=== PATIENT | female | born 1955 | race Caucasian/White ===

== ENCOUNTER → 2018-02-26 15:01 | Outpatient (CLI) | payer MEDICARE, MEDICAID ==
[2014-06-15 10:05] VITALS: BMI 24.9
[~2018-02-26 15:01] MED LIST: ASPIRIN81 MG PO; GLIMEPIRIDE4 MG PO; GLUCOPHAGE500 MG PO; METFORMIN HCL500 M1 PO; METOPROLOL TART50 MG PO; MOBIC7.5 MG PO; PHENYTEK200 MG PO; PLAVIX75 MG PO; PRAVACHOL40 MG PO; PRINIVIL10 MG PO; TRILIPIX45 MG PO; XALATAN 0.0052.5 ML EACH EYE
== END | disposition home or self-care (01) ==
LOC: D.MRI 15:01
DX: M54.16 Radiculopathy, lumbar region (principal)

== ENCOUNTER 2018-08-12 11:48 | Observation (INO) | payer MEDICARE, MEDICAID ==
[~2018-08-12] VITALS: Ht 157.5 cm; Wt 59.1 kg
--- NOTE | ~2018-08-12 | HEMODYNAMI ---
PATIENT:THEO FATIMA MEDICAL RECORD: [id number] : 51 LOCATION:[facility]# [id number] ADMISSION DATE: 08/12/18 Generatedon:08/12/201816:46 Patient name: THEO FATIMA Patient #: [id number] SSN: DO B: 1955 Date of study: 08/12/2018 Page: Of Hemodynamic Procedure Report Patient Data Patient Demographics Procedure consent was obtained First Name: THEO Gender: Female Last Name: KUSHAL : 1955 [facility] Initial: K Age: 63 year(s) Patient #: [id number] Race: Unknown Additional ID: [id number] Contact details [address]: [address] [place] [address] State: [place] City: [place] Zip code: [address] Past Medical History Allergies: No known allergies Admission Admission Data Admission Date: 08/12/2018 Admission Time: 13:47 Room #: D.E06 Height (in.): 61.81 BSA: 1.59 (m2) Height (cm.): 157 BMI: 23.94 (kg/m2) Weight (lbs.): 130.07 Weight (kg.): 59 Lab Results Lab Result Date: 08/12/2018 Lab Result Time: 0:00 Biochemistry Name Units Result Min Max BUN mg/dl 23 --(----)-* 7 18 Creatinine mg/dl 1.2 --(---*)-- 0.6 1.3 CBC Name Units Result Min Max Hematocrit % 45.3 --(-*--)-- 42 54 Hemoglobin g/dl 15.7 --(--*-)-- 13.5 17.5 Procedure Procedure Types Cath Procedure Diagnostic Procedure [facility] w/Coronaries Sedation Charges Moderate Sedation up to 15 minutes PCI Procedure Coronary Stent Coronary Stent Initial x2 Procedure Description Procedure Date Procedure Date: 08/12/2018 Procedure Start Time: 16:29 Procedure End Time: 16:45 Procedure Staff Name Function Anderson Blandon MD Performing Physician Chantel Amaya RT Monitor Josesito Cross RT Scrub Melina Mortensen RN Nurse Procedure Data Cath Procedure Fluoroscopy Diagnostic fluoroscopy Total fluoroscopy Time: 4.2 time: 4.2 min min Diagnostic fluoroscopy Total fluoroscopy dose: 645 dose: 645 mGy mGy Contrast Material Contrast Material Type Amount (ml) Isovue 300 136 Entry Location Entry Primary Successful Side Size Upsize Upsize Entry Closure Maciel ccessful Closure Location (Fr) 1 (Fr) 2 (Fr) Remarks Device Remarks Radial Right 6 Fr Mechanical artery Short Compression Estimated blood loss: 10 ml Diagnostic catheters Device Type Used For End Catheter Placement DIAGNOSTIC [place] 110cm 5 Procedure Fr catheter ([id number]) Procedure Complications No complications Procedure Medications Medication Administration Route Dosage 0.9% NaCl I.V. 100 ml/hr Oxygen etCO2 Nasal cannula 2 l/min Lidocaine 2% added to field 20 Heparin Flush Bag added to field 2 bags (1000units/500ml NS) Radial Cocktail added to field 1 syringe (Verapomil 2mg/Nitro 400mcg/Heparin 1500units) Versed I.V. 2 mg Fentanyl I.V. 50 mcg Versed I.V. 2 mg Fentanyl I.V. 50 mcg Heparin Bolus I.V. 4000 units Integrilin (Bolus I.V. 5 ml 2mg/ml) Lopressor I.V. 5 mg Hemodynamics Rest BSA: 1.59 (m2) O2 Consumption: Estimated: 163.4 (ml/min) O2 Consumption indexed: Estimated:102.77 (ml/min/m) Heart Rate: 95 (bpm) Snapshots Pre Cath Intra NCS Post Cath Vital Signs Time Heart Resp SPO2 etCO2 NIBP (mmHg) Rhythm Pain Sedation Rate (ipm) (%) (mmHg) Status Level (bpm) 16:20:59 86 18 99 31.7 155/73(118) NSR 0 (11) 10(A) , No pain 16:25:22 90 20 98 30 155/62(91) NSR 0 (11) 10(A) , No pain 16:29:40 92 16 97 26.4 141/57(97) NSR 0 (11) 10(A) , No pain 16:33:56 100 17 97 30 116/54(76) NSR 0 (11) 9(A) , No pain 16:38:10 102 16 98 27 126/63(92) NSR 0 (11) 9(A) , No pain 16:42:26 81 17 99 36.9 142/63(87) NSR 0 (11) 10(A) , No pain Medications Time Medication Route Dose Verified Delivered Reason Not es Effectiveness by by 16:20:50 0.9% NaCl I.V. 100 Anderson Melina used for ml/hr Jamia Mortensen aluminum boats assembler 16:21:00 Oxygen etCO2 2 l/min Anderson Melina used for Nasal Jamia Mortensen procedure cannula RN 16:21:05 Lidocaine 2% added 20ml Anderson Anderson for local to vial Jamia Blandno MD anesthetic field 16:21:12 Heparin Flush added 2 bags Anderson Anderson used for Bag to Jamia Blandon MD procedure (1000units/500ml field NS) 16:21:17 Radial Cocktail added 1 Anderson Anderson used for (Verapomil to syringe Jamia Blandon MD procedure 2mg/Nitro field 400mcg/Heparin 1500units) 16:26:11 Versed I.V. 2 mg Anderson Melina for sedation Jamia Mortensen RN 16:26:17 Fentanyl I.V. 50 mcg Anderson Melina for sedation Jamia Mortensen RN 16:31:04 Versed I.V. 2 mg Anderson Melina for sedation Jamia Mortensen RN 16:31:08 Fentanyl I.V. 50 mcg Anderson Melina for sedation Jamia Mortensen RN 16:34:09 Heparin Bolus I.V. 4000 Anderson Melina for tee ifed units Jamia Mortensen anticoagulation with RN Dr. Blandon 16:38:34 Integrilin I.V. 5 ml Anderson Melina for was wilberto (Bolus 2mg/ml) Jamia Mortensen antiplatelet 5mL RN therapy 16:40:27 Lopressor I.V. 5 mg Anderson Melina Per physician Jamia Mortensen drum puller Log Time Note 16:00:23 Signed procedure consent form obtained from patient. 16:00:25 Diagnostic Cath status Elective 16:00:26 Time tracking: Regular hours (M-F 7:00 - 5:00) 16:00:30 Plan of Care:Hemodynamics will remain stable., Cardiac rhythm will remain stable., Comfort level will be maintained., Respiratory function will remain adequate., Patient/ family verbilizes understanding of procedure., Procedure tolerated without complication., Recovers from procedure without complications.. 16:00:58 H&P Date Dictated: 08/12/2018 ER History on chart.. 16:01:18 Patient allergic to No known allergies 16::47 Lab Result : BUN 23 mg/dl :: Lab Result : Hemoglobin 15.7 g/dl 16::47 Lab Result : Creatinine 1.2 mg/dl :: Lab Result : Hematocrit 45.3 % 16::57 Patient Height : 61.81 inches 16:02: Patient Weight : 130.07 lbs 16::27 Josesito Cross RT(R) sent for patient. Start room use. 16:12:15 Patient received from ED to CCL 1 Alert and oriented. Tansferred to table in Supine position. 16:12:17 Warm blankets applied, and ruth ann hugger turned on for patient comfort. 16:12:18 Correct patient and procedure confirmed by team. 16:12:20 ECG and BP/O2 sat monitors applied to patient. 16:18:42 Vital chart was started 16:20:50 0.9% NaCl 100 ml/hr I.V. was administered by Melina Mortensen RN; used for procedure; 16:21:00 Oxygen 2 l/min etCO2 Nasal cannula was administered by Melina Mortensen RN; used for procedure; 16:21:05 Lidocaine 2% 20ml vial added to field was administered by Anderson Blandon MD; for local anesthetic; 16:21:12 Heparin Flush Bag (1000units/500ml NS) 2 bags added to field was administered by Anderson Blandon MD; used for procedure; 16:21:17 Radial Cocktail (Verapomil 2mg/Nitro 400mcg/Heparin 1500units) 1 syringe added to field was administered by Anderson Blandon MD; used for procedure; 16:23:18 Rhythm: sinus rhythm 16:23:19 Full Disclosure recording started 16:23:20 Pre-procedure instructions explained to patient. 16:23:21 Pre-op teaching completed and patient verbalized understanding. 16:23:28 Family unavailable. 16:23:35 Is patient on blood thinner?Yes 16:23:42 PRE LOADED PLAVIX IN THE ER 16:23:44 Patient diabetic? No. 16:23:50 Patient not . Patient is over age 55. 16:23:52 Previous problem with sedation/anesthesia? No ? 16:23:53 Snore? Yes 16:23:54 Sleep apnea? No 16:23:55 Deviated septum? No 16:23:56 Opens mouth fully? Yes 16:23:57 Sticks out tongue? Yes 16:23:58 Airway obstruction? No ? 16:24:02 Dentures? Yes IN 16:24:05 Modified Yong's test Ulnar < 7 seconds 16:24:07 Patient pain scale 0/10 ?. 16:24:10 IV patent on arrival in left hand with 0.9% NaCl at [facility]. 16:24:11 Lab results completed and on chart. 16:24:15 Right Radial & Right Groin area was prepped with chlora-prep and draped in sterile fashion 16:24:16 Alarms reviewed by R. N. 16:24:17 Sharps counted by scrub and verified by R.N. 16:24:19 Use device set Radial Dx or PCI 16:24:20 ACIST Syringe (49626) opened to sterile field. 16:24:20 Medline Cath Pack ([id number]) opened to sterile field. 16:24:21 Bag Decanter (2002S) opened to sterile field. 16:24:26 ACIST Hand Control (29995) opened to sterile field. 16:24:26 ACIST Manifold (55180) opened to sterile field. 16:24:32 Tegaderm 4 x 4 (1626W) opened to sterile field. 16:24:33 DIAGNOSTIC WIRE .035 260cm J wire (880025) opened to sterile field. 16:24:34 MBrace Wrist Support ([id number]) opened to sterile field. 16:24:35 SHEATH 6FR Slender (29-9305) opened to sterile field. 16:24:42 --------ALL STOP TIME OUT------ 16:24:44 Final Timeout: patient, procedure, and site verified with staff and physician. All members of the team are in agreement. 16:24:46 Right Radial & Right Groin site verified by team. 16:24:48 Maximum allowable Isovue 300 dose 300ml. Physician notified. (300ml for normal creatinines. For patients with creatinine of 1.7 or higher multiply weight(kg) x 5 divided by creatinine.) 16:24:53 Fire Safety Assessment: A--An alcohol-based skin anteseptic being used preoperatively., C--Open oxygen or nitrous oxide is being used., D--An ESU, laser, or fiber-optic light is being used. 16:24:56 Physical assessment completed. ASA score P 2 - A patient with mild systemic disease as per Anderson Blandon MD. 16:24:58 Sedation plan: IV Moderate Sedation Medication:Versed, Fentanyl 16:26:07 Baseline sample Acquired. 16:26:11 Versed 2 mg I.V. was administered by Melina Mortensen RN; for sedation; 16:26:17 Fentanyl 50 mcg I.V. was administered by Melina Mortensen RN; for sedation; 16:28:32 Zero performed for pressure channel P1 16:28:42 Procedure started. 16:29:15 Local anesthetic to right radial artery with Lidocaine 2% by Anderson Blandon MD.INITIAL ACCESS ONLY 16:30:13 A 6 Fr Short sheath was inserted into the Right Radial artery 16:30:26 A DIAGNOSTIC [place] 110cm 5 Fr catheter ([id number]) was advanced over the wire and used for Procedure. 16::53 LV gram done using ABDALLA 16:30:55 Injector settings: Ml/sec: 7, Volume: 15, 16:31:04 Versed 2 mg I.V. was administered by Melina Mortensen RN; for sedation; 16:31:08 Fentanyl 50 mcg I.V. was administered by Melina Mortensen RN; for sedation; 16:31:11 EF : 60 % 16:31:56 LCA angiography performed. 16:32:48 RCA angiography performed. 16:32:52 Catheter exchanged over wire. 16:34:09 Heparin Bolus 4000 units I.V. was administered by Melina Mortensen RN; for anticoagulation; verifed with Dr. Blandon 16:34:26 GUIDE 6FR AR 1.0 SH catheter ([id number]) opened to sterile field. 16:34:27 CHOICE PT Extra Support 182cm wire ([id number]) opened to sterile field. 16:34:33 INFLATOR Merit BasixCompak (VG4168) opened to sterile field. 16:34:43 6 Fr AR1 SH guide catheter was inserted over the wire 16:35:25 CHOICE ES 182 wire advanced. 16:35:26 Wire advanced across lesion. 16:36:16 Place stent Inflation Number: 1 A NATALYA RX 3.0 x 18 stent ([id number]) was prepped and advanced across the Mid RCA. The stent was deployed at 13 ANTHONY for 0:10 (min:sec). 16:36:27 Stent catheter was removed intact over wire. 16:36:27 Wire removed. 16:36:28 Guide catheter removed. 16:37:43 GUIDE 6FR XB 3.5 SH catheter ([id number]) opened to sterile field. 16:37:54 6 Fr XB 3.5SH guide catheter was inserted over the wire 16:38:34 Integrilin (Bolus 2mg/ml) 5 ml I.V. was administered by Melina Mortensen RN; for antiplatelet therapy; wasted 5mL 16:38:59 CHOICE ES 182 wire advanced. 16:39:00 Wire advanced across lesion. 16:40:27 Lopressor 5 mg I.V. was administered by Melina Mortensen RN; Per physician; 16:40:34 Place stent Inflation Number: 1 A NATALYA RX 2.75 x 18 stent ([id number]) was prepped and advanced across the Prox CX. The stent was deployed at 17 ANTHONY for 0:00 (min:sec). 16:41:18 Stent catheter was removed intact over wire. 16:41:19 Wire removed. 16:41:19 Guide catheter removed. 16:41:42 TR BAND Standard ([id number]) opened to sterile field. 16:42:07 Procedure ended.(Physican Out) 16:42:56 Sheath removed intact; hemostasis achieved with Mechanical Compression to the Right Radial artery. 16:43:01 Fluoroscopy time 04.20 minutes. 16:43:05 Fluoroscopy dose: 645 mGy 16:43:05 Flurop Dose total: 645 16:43:13 Contrast amount:Isovue 300 136ml. 16:43:15 Sharps counted by scrub and verified by R.N. 16:43:18 TR band inflated with 12cc of air. 16:44:33 Post-procedure physical assessment completed. ASA score P 2 - A patient with mild systemic disease as per Anderson Blandon MD. 16:44:35 Post procedure rhythm: sinus rhythm 16:44:39 Estimated blood loss: 10 ml 16:44:41 Post procedure instruction explained to patient.Patient verbalizes understanding. 16:44:41 Patient needs reinforcement of post procedure teaching. 16:44:57 Procedure type changed to Cath procedure, Diagnostic procedure, LHC, C w/Coronaries, Sedation Charges, Moderate Sedation up to 15 minutes, PCI procedure, Coronary Stent, Coronary Stent Initial x2 16:45:21 Procedure and supply charges have been captured, reviewed, submitted and are correct. 16:45:23 Procedure Complication : No complications 16:45:25 Vital chart was stopped 16:45:25 See physician's report for complete and final results. 16:45:27 Report given to [facility]. 16:45:29 Patient transfered to [facility] with Bed. 16:45:31 Procedure ended. 16:45:31 Full Disclosure recording stopped 16:45:37 End room use (Document Last) Intervention Summary Intervention Notes Time ActionType Lesion and Equipment Used Action# Pressure Duration Attributes 16:36:16 Place stent Mid RCA NATALYA RX 3.0 x 1 13 00:10 18 stent ([id number]) 16:40:34 Place stent Prox CX NATALYA RX 2.75 x 1 17 00:00 18 stent ([id number]) Device Usage Item Name Manufacture Quantity Catalog Number Hospital Part Current M inimal Lot# / Charge Number Stock Stock Serial# Code ACIST Syringe Acist 1 72670 081541 049749 182902 2 0 (54683) Medical Systems Inc Medline Cath Medline 1 [id number] 619765 15146 423387 5 Pack ([id number]) Bag Decanter Microtek 1 2001S 416068 74814 636576 5 () Medical Inc. ACIST Hand Acist 1 48913 451816 240975 338878 5 Control Medical (51652) Systems Inc ACIST Manifold Acist 1 80762 151756 419743 987630 5 (58527) Medical Systems Inc Tegaderm 4 x 4 3M 1 1626W 285980 430141 571852 5 (1626W) DIAGNOSTIC St Navjot 1 223032 416488 675504 200887 3 0 WIRE .035 260cm J wire (035810) MBrace Wrist Advanced 1 140-0250-00 519609 87962 909566 5 Support Vascular ([id number]) Dynamics SHEATH 6FR Terumo 1 [id number] 213100 890608 812568 5 Slender (80-1060) DIAGNOSTIC Terumo 1 40-1963 610279 325964 149079 5 [place] 110cm 5 Fr catheter (703490) GUIDE 6FR AR Medtronic 1 [id number] 945893 30771 751162 1 1.0 SH catheter ([id number]) CHOICE PT Edon 1 [id number] 624709 525271 729054 5 Extra Support Scientific 182cm wire (1202989M6) INFLATOR Merit Merit 1 YL2881 630110 154711 305332 1 5 Makers AlleywvSummon (CJ9816) NATALYA RX 3.0 x Medtronic 1 [id number] 552233 1376974 715211 5 [id number] 18 stent ([id number]) GUIDE 6FR XB Cardinal 1 [id number] 892530 528795 430942 2 3.5 SH Health catheter (86837311) NATALYA RX 2.75 x Medtronic 1 [id number] 141345 3601831 195540 5 [id number] 18 stent ([id number]) TR BAND Terumo 1 [id number] 896782 128986 390636 4 0 Standard ([id number]) Signature Audit [place] Stage Time Signature Unsigned Intra-Procedure 08/12/2018 Chantel Amaya 4:46:21 PM RT(R) Signatures Monitor : Chantel Amaya Signature : RT Date : Time : [place] [address] TAMMY KHAN, UZMA [address]
[2018-08-12] MEDS ORDERED: GABAPENTIN100 MG PO (11:55)
[2018-08-12] MEDS ORDERED: TRILIPIX45 MG PO (11:55)
[2018-08-12] MEDS ORDERED: DOXYCYCLINE HY100 M2 PO (11:56)
[2018-08-12 12:18] LABS: BASOPHILS 0.4 % (0-2); HEMATOCRIT 45.3 % (36.0-48.0); HEMOGLOBIN 15.7 g/dL (12-16); IMMATURE GRANULOCYTES 1.4 % (0-5); LYMPHOCYTES 12.3 % (15-50); MCHC 34.7 g/dL (31.0-37.0); MCV 92.3 fL (80.0-100.0); MEAN PLATELET VOLUME 10.2 fL (7.4-10.4); MONOCYTES 10.1 % (2-11); NEUTROPHILS 74.8 % (40-80); RBC 4.91 10x6/uL (4.00-5.40); RDW 12.6 % (11.5-14.5); WBC 15.5 10x3/uL (4.8-10.8)
[2018-08-12 12:21] LABS: PLATELET COUNT 463 10x3/uL (130-400)
[2018-08-12 12:34] LABS: ALBUMIN 3.6 g/dL (3.4-5.0); ALKALINE PHOSPHATASE 125 U/L (46-116); ALT (SGPT) 42 U/L (10-68); CALC OSMOLALITY 276 mosm/kg (275-300); CALCIUM 9.4 mg/dL (8.5-10.1); CARBON DIOXIDE 22.5 mmol/L (21.0-32.0); CHLORIDE - SERUM 99 mmol/L (98-107); CREATININE - SERUM 1.2 mg/dL (0.6-1.3); GLUCOSE 151 mg/dL (74-106); POTASSIUM - SERUM 4.5 mmol/L (3.5-5.1); SODIUM 135 mmol/L (136-145); UREA NITROGEN 23 mg/dL (7-18); eGFR NON AFRICAN AMERICAN 48 mL/min (90-120)
[2018-08-12 12:44] LABS: APTT 28.2 SECONDS (22.8-39.4); INR 1.05 (0.85-1.17); PROTIME 13.2 SECONDS (11.6-15.0)
[2018-08-12 12:46] LABS: CKMB 17.1 U/L (0.0-3.6); CREATINE KINASE 131 UL (21-215); MAGNESIUM - SERUM 1.8 mg/dL (1.8-2.4); TROPONIN-I < 0.017 ng/mL (0.000-0.060)
--- NOTE | 2018-08-12 16:43 | HP ---
PATIENT: THEO FATIMA MEDICAL RECORD: [id number] ACCOUNT: [id number] [facility] 51 ADMISSION DATE: 08/12/18 PCP: CATARINA MCKINNEY MD HISTORY AND PHYSICAL EXAMINATION DIAGNOSES: 1. Unstable angina. 2. Coronary artery disease. 3. Previous multivessel PTCA and stent. 4. Hypertension. 5. Hyperlipidemia. 6. Noninsulin-dependent diabetes. HISTORY: Mrs. Fatima presents with continuing anginal symptomatology. She was set for cardiac catheterization on Friday. The chest pain worsened. She now presented today. She has no acute changes on her EKG. She continues to have episodes of chest pain in an unstable fashion. PHYSICAL EXAMINATION: GENERAL APPEARANCE: Well-nourished, well-developed, appears stated age. Level of distress, comfortable. PSYCHIATRIC: Mental status, alert, normal affect. Orientation, oriented to time, place and person. EYES: Lids and conjunctiva, noninjected. No discharge, no pallor. ENT: Lips, teeth, gums, normal dentition. Oropharynx, no cyanosis, no pallor. NECK: Carotid arteries, bilateral normal upstroke, no bruits, no thrills. JUGULAR VEINS: No jugular venous pressure or distention. CERVICAL LYMPH NODES: Nontender, nonenlarged. THYROID: Not enlarged. Nontender. No nodules. LUNGS: Respiratory effort, unlabored. CHEST: Normal curvature. No thoracic deformity. No chest wall tenderness. Percussion, resonant. Auscultation, clear. No wheezes, no rales, no rhonchi. CARDIOVASCULAR: Precordial exam, nondisplaced. No heaves or pericardial thrills. Rate and rhythm, regular. Heart sounds, normal S1, normal S2. No S3, no gallop, no rub. Systolic murmur, not heard. Diastolic murmur, not heard. EXTREMITIES: No cyanosis, no edema. Peripheral pulses, full and equal in all extremities, except as noted. No bruits appreciated. ABDOMEN: Soft, nondistended. Normal aorta. No bruit. Nontender. No masses. Liver, nontender, no hepatomegaly. Spleen, nontender, no splenomegaly. MUSCULOSKELETAL: No joint tenderness. No joint swelling. No erythema. NEUROLOGICAL: Normal gait, normal strength, normal tone. SKIN: Warm and dry. OVERALL IMPRESSION: Chest pain with unstable angina with past history of coronary artery disease, multivessel PTCA and stent. We will proceed with coronary angiography. Further care depends upon findings of the angiography. TRANSINT:[id number] Voice Confirmation ID: [id number] DOCUMENT ID: [id number] HISTORY AND PHYSICAL [id number] THEO FATIMA JEFFREY MD at 1643 CC: [id number] DICTATION DATE: 08/12/18 1533 SKI PRODUCTION SUPERVISOR: 08/12/18 1543 ADM IN [facility] [address] [id number]
--- NOTE | 2018-08-12 17:12 | NUR ---
TRANSFER FROM BEVELLER OPERATOR BY STRETCHER. VS WNL. RIGHT WRIST STABLE WITH TR-BAND INTACT. CALL LIGHT IN REACH. WILL CONT. PLAN OF CARE.
[2018-08-12 17:20] VITALS: BP 121/71; Ht 157.5 cm; Wt 59.1 kg
--- NOTE | 2018-08-12 19:24 | NUR ---
RESUMING PATIENT CARE. PATIENT ALERT AND ORIENTED. RESPIRATIONS ARE EVEN AND UNLABORED. NO S/S OF DISTRESS. NO C/O PAIN. CALL LIGHT WITHIN REACH. WILL CPOC.
--- NOTE | 2018-08-12 19:54 | MORECARE ---
CASE MANAGEMENT DISCHARGE SUMMARY PATIENT: THEO FATIMA UNIT: [id number] ADM DATE: 08/12/18 AGE: 63 : 51 SEX: F ROOM/BED: D.[facility]8 AUTHOR: MASTER RUEDA PHYSICIAN: REFERRING PHYSICIAN: OTTONIEL DURAN MD DATE OF SERVICE: 08/12/18 Discharge Plan Patient Name: THEO FATIMA [facility] [facility] 1955 Planned Disposition: Anticipated Discharge Date: 08/13/18 Discharge Date: Expected LOS: 1 Initial Reviewer: [email or web address] Initial Review Date: 08/12/2018 Generated: 08/12/18 8:54 pm DCPIA - Discharge Planning Initial Assessment Updated by [email or web address]: Mariama Benz on 08/12/18 7:51 pm * Is the patient Alert and Oriented? Yes * How many steps to enter\exit or inside your home? 07/30 w/coello * PCP Dr. Villalpando * Pharm[facility] * Preadmission Environment Home Alone * ADLs Independent * Equipment Cane Rolling Walker * Other Equipment NA * List name and contact numbers for known caregivers / representatives who currently or will assist patient after discharge: Jolly Zaldivar (lifelong friend) [phone] * Verbal permission to speak to the caregivers and representatives has been obtained from the patient. N/A * Please name any agencies selected above. NA * Additional services required to return to the preadmission environment? No * Can the patient safely return to the preadmission environment? Yes * Has this patient been hospitalized within the prior 30 days at any hospital? No Patient Name: THEO FATIMA Page [id number] at 1956 All edits/amendments must be made on the electronic document DICTATION DATE: 08/12/181952 JEWEL BEARING BROACHER: JERRY 08/12/181952 RPT#: [id number] DC DATE: STATUS: ADM IN [facility] [address] [place] [address] END OF REPORT
[2018-08-12 22:36] VITALS: BP 146/61
[2018-08-13 06:06] VITALS: BP 131/67
--- NOTE | 2018-08-13 07:30 | NUR ---
RECEIVED PT IN BED EYES CLOSED RESP UNLABORED NAD NOTED
--- NOTE | 2018-08-13 08:21 | MORECARE ---
CASE MANAGEMENT DISCHARGE SUMMARY PATIENT: THEO FATIMA UNIT: [id number] ADM DATE: 08/12/18 AGE: 63 : 53 SEX: F ROOM/BED: D.[facility]8 AUTHOR: MASTER RUEDA PHYSICIAN: REFERRING PHYSICIAN: OTTONIEL DURAN MD DATE OF SERVICE: 08/13/18 Discharge Plan Patient Name: THEO FATIMA [facility] [facility] 1955 Planned Disposition: Anticipated Discharge Date: 08/13/18 Discharge Date: Expected LOS: 1 Initial Reviewer: [email or web address] Initial Review Date: 08/12/2018 Generated: 08/13/18 9:21 am DCPIA - Discharge Planning Initial Assessment Updated by [email or web address]: Mariama Benz on 08/12/18 7:51 pm * Is the patient Alert and Oriented? Yes * How many steps to enter\exit or inside your home? 07/30 w/coello * PCP Dr. Villalpando * Pharmacy [facility]onis Rodriguez * Preadmission Environment Home Alone * ADLs Independent * Equipment Cane Rolling Walker * Other Equipment NA * List name and contact numbers for known caregivers / representatives who currently or will assist patient after discharge: Jolly Zaldivar (lifelong friend) [phone] * Verbal permission to speak to the caregivers and representatives has been obtained from the patient. N/A * Please name any agencies selected above. NA * Additional services required to return to the preadmission environment? No * Can the patient safely return to the preadmission environment? Yes * Has this patient been hospitalized within the prior 30 days at any hospital? No Last DP export: 08/12/18 6:54 p Patient Name: THEO FATIMA Page 62557 at 0821 All edits/amendments must be made on the electronic document DICTATION DATE: 08/13/18820 ROOF PROMENADE TILE SETTER: JERRY 08/13/18820 RPT#: [id number] DC DATE: STATUS: ADM IN [facility] [address] [place] [address] END OF REPORT
[2018-08-13] MEDS ORDERED: PLAVIX75 MG PO (08:38)
[2018-08-13 09:06] VITALS: BP 125/70
--- NOTE | 2018-08-13 10:12 | NUR ---
REVIEWED DISCHARGE INSTRUCTIONS WITH PT STATES UNDERSTANDING COPY GIVEN
--- NOTE | 2018-08-13 11:19 | NUR ---
PT DCD HOME LEFT UNIT VIA W/C IN STABLE CONDITION WITH ALL PERSONAL BELONGINGS
--- NOTE | 2018-08-14 08:29 | MORECARE ---
CASE MANAGEMENT DISCHARGE SUMMARY PATIENT: THEO FATIMA UNIT: [id number] ADM DATE: 08/12/18 AGE: 63 : 53 SEX: F ROOM/BED: D.2697 AUTHOR: MASTER RUEDA PHYSICIAN: REFERRING PHYSICIAN: OTTONIEL DURAN MD DATE OF SERVICE: 08/14/18 Discharge Plan Patient Name: THEO FATIMA Facility: [facility]:[place] : 1955 Planned Disposition: Anticipated Discharge Date: 08/13/18 Discharge Date: 08/13/2018 Expected LOS: 1 Initial Reviewer: [email or web address] Initial Review Date: 08/12/2018 Generated: 08/14/18 9:29 am DCPIA - Discharge Planning Initial Assessment Updated by [email or web address]: Mariama Benz on 08/12/18 7:51 pm * Is the patient Alert and Oriented? Yes * How many steps to enter\exit or inside your home? 07/30 w/coello * PCP Dr. Villalpando * Pharmacy [facility] * Preadmission Environment Home Alone * ADLs Independent * Equipment Cane Rolling Walker * Other Equipment NA * List name and contact numbers for known caregivers / representatives who currently or will assist patient after discharge: Jolly Zaldivar (lifelong friend) [phone] * Verbal permission to speak to the caregivers and representatives has been obtained from the patient. N/A * Please name any agencies selected above. NA * Additional services required to return to the preadmission environment? No * Can the patient safely return to the preadmission environment? Yes * Has this patient been hospitalized within the prior 30 days at any hospital? No Last DP export: 08/13/18 7:21 a Patient Name: THEO FATIMA Page 76190 at 0829 All edits/amendments must be made on the electronic document DICTATION DATE: 08/14/18827 WELDING SYSTEMS AND EQUIPMENT REPAIRER: JERRY 08/14/18827 RPT#: [id number] DC DATE:08/13/18 STATUS: DIS IN [facility] [address] [place] [address] END OF REPORT
--- NOTE | 2018-08-14 15:03 | OP ---
PATIENT NAME: THEO FATIMA MEDICAL RECORD: [id number] :51 LOCATION:D.M2 D.2118 ADMISSION DATE:08/12/18 SURGEON: OTTONIEL DURAN MD DATE OF OPERATION: 08/12/2018 DATE OF SERVICE: 08/12/2018 PROCEDURES: 1. PTCA stent RCA. 2. PTCA stent left circumflex. 3. Left heart catheterization. 4. Selective coronary angiography. 5. Left ventriculogram. INDICATION: Angina and coronary artery disease. PROCEDURE IN DETAIL: After informed consent was obtained and after a detailed description of the risks, benefits as well as alternative therapies, the patient elected to proceed with angiogram and angioplasty. The right radial area was prepped and draped in normal sterile fashion. Right radial artery was cannulated via modified Seldinger technique with placement of 6-Khmer sheath. All catheters exchanged through this sheath. FINDINGS: Left ventriculogram was performed in standard 30-degree ABDALLA view, reveals preserved cardiac wall motion, ejection fraction 55%. SELECTIVE CORONARY ANGIOGRAPHY: 1. Left main showed no significant angiographic disease. 2. Left anterior descending has previously placed stent. There is no significant restenosis. No disease elsewise at the LAD or its branches. 3. Left circumflex has 90% stenosis proximally. 4. Right coronary has 75% stenosis in the mid vessel. PTCA STENT OF THE RCA: The stent used was a 3.0 x 18-mm [place]. Result was 0% residual stenosis. PTCA STENT OF THE LEFT CIRCUMFLEX: The stent used was a 2.75 x 18-mm [place]. Result was 0% residual stenosis. OVERALL IMPRESSION: Successful percutaneous transluminal coronary angioplasty stent of the right coronary artery and left circumflex, both going from 75% to 80% initial stenosis to 0% residual. TRANSINT:[id number] Voice Confirmation ID: [id number] DOCUMENT ID: [id number] OTTONIEL DURAN MD at 1503 CC: [id number] DICTATION DATE: 08/12/18 164 BANK WORKER: 08/12/18 2316 DIS IN 08/13/18 [place] [address]
== END 2018-08-13 11:19 | disposition home or self-care (01) ==
LOC: D.ER 11:48 → OBSVTIME 13:47 → D.EDHOLD 13:47 → D.M2 17:08
PROVIDERS: Emergency Medicine; ADMIT Internal Medicine Interventional Cardiology; ATTEND Internal Medicine Interventional Cardiology
DX: I25.110 Atherosclerotic heart disease of native coronary artery with unstable angina pectoris (principal); I10 Essential (primary) hypertension; E78.5 Hyperlipidemia, unspecified; E11.9 Type 2 diabetes mellitus without complications
CPT/HCPCS: 93458; C9600 ×2

== ENCOUNTER 2019-01-10 12:31 | Emergency (ER) | payer MEDICARE, MEDICAID ==
[~2019-01-10] VITALS: Ht 157.5 cm; Wt 59.0 kg
[~2019-01-10 12:31] MED LIST changes: +DOXYCYCLINE HY100 M2 PO; +GABAPENTIN100 MG PO
[2019-01-10 12:37] VITALS: Ht 157.5 cm; Wt 59.0 kg
[2019-01-10] MEDS ORDERED: LISINOPRIL10 MG PO (12:39)
[2019-01-10] MEDS ORDERED: CLARITIN 10 MG10 MG (12:40)
[2019-01-10] MEDS ORDERED: ZANTAC300 MG PO (12:40)
[2019-01-10] MEDS ORDERED: ERYTHROMYCIN OPT1 GM EACH EYE (15:51)
[2019-01-10 16:20] VITALS: BP 145/80
== END 2019-01-10 16:21 | disposition home or self-care (01) ==
LOC: D.ER 12:31
DX: S05.02XA Injury of conjunctiva and corneal abrasion without foreign body, left eye, initial encounter (principal); S05.01XA Injury of conjunctiva and corneal abrasion without foreign body, right eye, initial encounter; X58.XXXA Exposure to other specified factors, initial encounter; Y93.89 Activity, other specified; Y92.89 Other specified places as the place of occurrence of the external cause

== ENCOUNTER 2019-06-08 19:00 | Outpatient (CLI) | payer MEDICARE, MEDICAID ==
[~2019-06-08 19:00] MED LIST changes: +CLARITIN 10 MG10 MG; +ERYTHROMYCIN OPT1 GM EACH EYE; +LISINOPRIL10 MG PO; +ZANTAC300 MG PO
== END 2019-06-08 23:59 | disposition home or self-care (01) ==
LOC: D.MAMMO 19:00 → D.US 06-14 10:30
PROVIDERS: ATTEND Family Medicine
DX: N63.15 Unspecified lump in the right breast, overlapping quadrants (principal)

== ENCOUNTER → 2019-06-16 08:26 | Outpatient (CLI) | payer MEDICARE, MEDICAID | END | disposition home or self-care (01) | LOC: D.US 08:26 | PROVIDERS: ATTEND Family Medicine | DX: N63.15 Unspecified lump in the right breast, overlapping quadrants (principal) ==

== ENCOUNTER 2019-07-15 05:55 | Day surgery (SDC) | payer MEDICARE, MEDICAID ==
[2019-07-13 13:48] LABS: EOSINOPHILS 4.6 % (0-7); HEMATOCRIT 40.9 % (36.0-48.0); HEMOGLOBIN 13.2 g/dL (12-16); IMMATURE GRANULOCYTES 0.4 % (0-5); LYMPHOCYTES 24.3 % (15-50); MCH 29.3 pg (26.0-34.0); MCHC 32.3 g/dL (31.0-37.0); MCV 90.9 fL (80.0-100.0); MEAN PLATELET VOLUME 10.5 fL (7.4-10.4); MONOCYTES 9.7 % (2-11); PLATELET COUNT 490 10x3/uL (130-400); RDW 13.8 % (11.5-14.5); WBC 9.8 10x3/uL (4.8-10.8)
[2019-07-13 14:01] LABS: ANION GAP 11.7 mmol/L (8-16); CALCIUM 9.4 mg/dL (8.5-10.1); CARBON DIOXIDE 29.7 mmol/L (21.0-32.0); CREATININE - SERUM 1.1 mg/dL (0.6-1.3); POTASSIUM - SERUM 4.4 mmol/L (3.5-5.1)
[~2019-07-15] VITALS: Ht 157.5 cm; Wt 58.5 kg
--- NOTE | ~2019-07-15 | OP ---
PATIENT NAME: THEO FATIMA MEDICAL RECORD: [id number] :51 LOCATION:D.OPS ADMISSION DATE: SURGEON: CHRISTIANO MEDRANO MD DATE OF OPERATION: 07/15/2019 PREOPERATIVE DIAGNOSES: 1. Right invasive ductal carcinoma. 2. Coronary artery disease. POSTOPERATIVE DIAGNOSES: 1. Right invasive ductal carcinoma. 2. Coronary artery disease. PROCEDURE IN DETAIL: Right lumpectomy with right axillary sentinel lymph node biopsy. SURGEON: Christiano Medrano MD REPORT OF PROCEDURE: Preoperatively, the patient had lymphoscintigraphy, which showed uptake in the patient's right axilla. The patient's right breast and axilla were prepped and draped in sterile fashion. The mass was palpable in the lateral aspect of the right breast. A transverse incision was made overlying this mass and electrocautery was used to dissect through the subcutaneous tissues. We performed a lumpectomy with a large core of breast tissue around this palpable mass. This was completely excised and marked appropriately before it was sent off for permanent specimen. We inspected the wound bed and any bleeding that was found was treated with electrocautery. The inspection of the patient's axilla showed there was uptake of the lymph node. There was actually very close to the base of our wound bed. We went through this the breast incision was able to access the patient's axilla and found an enlarged what appeared to be fatty palpable lymph node. This lymph node had uptake of 350. We were able to remove this lymph node and a small lymph node that was adherent to it. Once these were excised, we inspected the wound bed and did not see any evidence of any further radioactive uptake. We then irrigated out the wound with sterile water. Again, we checked for any bleeding and any that was found was treated with electrocautery. The subcutaneous tissues were reapproximated with interrupted 3-0 Vicryls and the skin was closed with running subcutaneous 5-0 Monocryl. A total of 10 mL of 0.25% Marcaine with epinephrine was infused into the surrounding tissues and the wound was dressed appropriately. COMPLICATIONS: None. CONDITION: Stable. ANESTHESIA: General endotracheal and local. BLOOD LOSS: Minimal. TRANSINT:[id number] Voice Confirmation ID: [id number] DOCUMENT ID: [id number] OPERATIVE REPORT [id number] FATIMA,THEO Trisha CHRISTIANO MEDRANO MD CC: CATARINA MCKINNEY [id number] DICTATION DATE: 07/15/19 1135 GENERAL DOC: 07/15/19 1742 REG [facility] [address] [id number]
[~2019-07-15 05:55] MED LIST changes: +CIMETIDINE200 MG PO
[2019-07-15 06:57] VITALS: BP 131/63; Ht 157.5 cm; Wt 58.5 kg
--- NOTE | 2019-07-15 08:50 | NUR ---
Patient was scheduled for a Right Breast Lymphoscintigraphy. Dr. Dee entered the room. Time-out was called at 0810. Site was prepped and 539uCi Tc-99m Tilmanocept was injected into the right breast subcutaneous at 0815 by physician. Imaging followed.
[2019-07-15] MEDS ORDERED: HYDROCODON-ACE1 EA10 PO (11:31)
== END 2019-07-15 14:55 | disposition home or self-care (01) ==
LOC: D.OPS 05:55
PROVIDERS: ATTEND Surgery
DX: C50.611 Malignant neoplasm of axillary tail of right female breast (principal); I25.10 Atherosclerotic heart disease of native coronary artery without angina pectoris

== ENCOUNTER → 2019-10-08 08:23 | Outpatient (CLI) | payer MEDICARE, MEDICAID ==
[2019-07-15 06:57] VITALS: BMI 23.6
[~2019-10-08 08:23] MED LIST changes: +HYDROCODON-ACE1 EA10 PO
== END | disposition home or self-care (01) ==
LOC: D.HCCARDIO 08:23
PROVIDERS: ATTEND Internal Medicine Cardiovascular Disease
DX: I25.10 Atherosclerotic heart disease of native coronary artery without angina pectoris (principal)

== ENCOUNTER 2020-02-01 00:44 | Emergency (ER) | payer MEDICARE, MEDICAID ==
[~2020-02-01] VITALS: Ht 157.5 cm; Wt 57.3 kg
[2020-02-01 00:48] VITALS: Ht 157.5 cm; Wt 57.3 kg
[2020-02-01 01:43] LABS: CALC OSMOLALITY 276 mosm/kg (275-300); CARBON DIOXIDE 26.3 mmol/L (21.0-32.0); CHLORIDE - SERUM 104 mmol/L (98-107); CREATININE - SERUM 1.2 mg/dL (0.6-1.3); POTASSIUM - SERUM 4.1 mmol/L (3.5-5.1); SODIUM 134 mmol/L (136-145); UREA NITROGEN 20 mg/dL (7-18); eGFR NON AFRICAN AMERICAN 47 mL/min (90-120)
[2020-02-01 01:44] LABS: APTT 25.3 SECONDS (22.8-39.4); INR 0.96 (0.85-1.17); PROTIME 12.7 SECONDS (11.6-15.0)
[2020-02-01 01:52] LABS: GLUCOSE 201 mg/dL (74-106)
[2020-02-01 01:56] LABS: BASOPHILS 0.8 % (0-2); EOSINOPHILS 5.8 % (0-7); HEMATOCRIT 37.5 % (36.0-48.0); HEMOGLOBIN 12.1 g/dL (12-16); IMMATURE GRANULOCYTES 0.5 % (0-5); LYMPHOCYTES 13.9 % (15-50); MCHC 32.3 g/dL (31.0-37.0); MCV 89.9 fL (80.0-100.0); MEAN PLATELET VOLUME 10.3 fL (7.4-10.4); MONOCYTES 11.4 % (2-11); NEUTROPHILS 67.6 % (40-80); RBC 4.17 10x6/uL (4.00-5.40); RDW 16.5 % (11.5-14.5); WBC 8.3 10x3/uL (4.8-10.8)
[2020-02-01 01:58] LABS: ALBUMIN 3.3 g/dL (3.4-5.0); ALKALINE PHOSPHATASE 83 U/L (30-120); ALT (SGPT) 16 U/L (10-68); BILIRUBIN - TOTAL 0.11 mg/dL (0.2-1.3); CKMB 4.4 U/L (0.0-3.6); CREATINE KINASE 101 UL (21-215); MAGNESIUM - SERUM 1.7 mg/dL (1.8-2.4); PROTEIN - SERUM 6.9 g/dL (6.4-8.2)
[2020-02-01 01:59] LABS: TROPONIN-I < 0.017 ng/mL (0.000-0.060)
[2020-02-01 02:00] LABS: PLATELET COUNT 389 10x3/uL (130-400)
[2020-02-01] MEDS ORDERED: HYDROCODON-ACE1 EAC7 PO (02:05)
[2020-02-01 03:37] VITALS: BP 186/68
== END 2020-02-01 02:17 | disposition home or self-care (01) ==
LOC: D.ER 00:44
PROVIDERS: Emergency Medicine
DX: M47.812 Spondylosis without myelopathy or radiculopathy, cervical region (principal); M50.00 Cervical disc disorder with myelopathy, unspecified cervical region; M50.10 Cervical disc disorder with radiculopathy, unspecified cervical region; E11.9 Type 2 diabetes mellitus without complications; Z79.84 Long term (current) use of oral hypoglycemic drugs; I10 Essential (primary) hypertension; Z95.5 Presence of coronary angioplasty implant and graft; K21.9 Gastro-esophageal reflux disease without esophagitis; M54.9 Dorsalgia, unspecified

== ENCOUNTER → 2020-02-04 13:50 | Outpatient (CLI) | payer MEDICARE, MEDICAID ==
[2020-02-01 00:48] VITALS: BMI 23.1
[~2020-02-04 13:50] MED LIST changes: +HYDROCODON-ACE1 EAC7 PO
== END | disposition home or self-care (01) ==
LOC: D.MRI 13:50
PROVIDERS: ATTEND Family Medicine
DX: M50.123 Cervical disc disorder at C6-C7 level with radiculopathy (principal)

== ENCOUNTER 2020-07-25 05:35 | Inpatient (IN) | payer MEDICARE, MEDICAID ==
[~2020-07-25] VITALS: Ht 157.5 cm; Wt 63.5 kg
--- NOTE | ~2020-07-25 | OP ---
PATIENT NAME: THEO FATIMA MEDICAL RECORD: [id number] :51 LOCATION:D.MS Isidro9 ADMISSION DATE: SURGEON: CHRISTIANO MEDRANO MD DATE OF OPERATION: 07/25/2020 PREOPERATIVE DIAGNOSES: 1. Bilateral breast cancer. 2. Diabetes mellitus. 3. Hypertension. 4. Hypercholesterolemia. 5. Coronary artery disease. POSTOPERATIVE DIAGNOSES: 1. Bilateral breast cancer. 2. Diabetes mellitus. 3. Hypertension. 4. Hypercholesterolemia. 5. Coronary artery disease. PROCEDURE: Bilateral simple mastectomies with left sentinel lymph node biopsy. SURGEON: Christiano Medrano MD DESCRIPTION OF PROCEDURE: Preoperatively, the patient underwent lymphoscintigraphy which showed uptake in the left axilla. The patient was taken to the operating room where the breast and axilla were prepped and draped in sterile fashion. We approached the right side first. An ovoid incision was made transversely around the patient's nipple areolar complex. Electrocautery was used to dissect through the subcutaneous tissues. We elevated the subcutaneous flaps overlying the breast in all directions extending up to the clavicle, medially towards the sternum, inferiorly towards the rectus muscles and laterally towards the latissimus dorsi and axilla. Once we had this elevated, then we took the breast tissue and pectoralis fascia off of the pectoral muscle and sent the specimen off for permanent. Any bleeding that was found was treated with either ties or electrocautery. We then approached the left side. Again, ovoid incision was made in transverse fashion around the nipple areolar complex. Electrocautery was used to dissect through the subcutaneous tissues and we elevated the subcutaneous flaps overlying the breast again in all directions as described on the right side. The patient's axilla was then penetrated and using a Neoprobe, we were able to localize two lymph nodes. The first lymph node was large and had a reading of 270. This was excised using small clips. We then reassessed the patient's axilla and the second lymph node was found. It was much smaller and it had a reading of 90. These 2 lymph nodes were excised using clips and sent off for permanent specimen. I did not have any evidence of any significant radioactive uptake in the axilla at this point. We then irrigated out the 2 wound beds with sterile water solution. Any bleeding that was found on either side was treated with either ties or electrocautery. A 10 flat NIDHI drains x2 were placed in each side and brought out through the lateral aspect of the chest wall. These were sutured into place with 3-0 nylons. The subcutaneous tissues were reapproximated with multiple interrupted 3-0 Vicryls and the skin was closed with saji. COMPLICATIONS: None. OPERATIVE REPORT [id number] THEO FATIMA CONDITION: Stable. ANESTHESIA: General endotracheal and paravertebral block. TRANSINT:[id number] Voice Confirmation ID: [id number] DOCUMENT ID: [id number] CHRISTIANO MEDRANO MD CC: ANT ANDREW MD and CATARINA MCKINNEY [id number] DICTATION DATE: 07/25/20 1210 MECHANICAL APPLICATIONS ENGINEER: 07/25/20 1627 REG [facility] [address] [place] [address]
[~2020-07-25 05:35] MED LIST changes: +PROTONIX40 MG PO
[2020-07-25 06:05] LABS: BASOPHILS 0.6 % (0-2); EOSINOPHILS 4.9 % (0-7); HEMATOCRIT 39.7 % (36.0-48.0); HEMOGLOBIN 12.9 g/dL (12-16); IMMATURE GRANULOCYTES 0.5 % (0-5); LYMPHOCYTES 17.9 % (15-50); MCH 29.6 pg (26.0-34.0); MCHC 32.5 g/dL (31.0-37.0); MCV 91.1 fL (80.0-100.0); MEAN PLATELET VOLUME 9.9 fL (7.4-10.4); MONOCYTES 6.8 % (2-11); NEUTROPHIL ABS# 5.82 10x3/uL (1.56-6.13); NEUTROPHILS 69.3 % (40-80); PLATELET COUNT 339 10x3/uL (130-400); RBC 4.36 10x6/uL (4.00-5.40); RDW 13.5 % (11.5-14.5); WBC 8.4 10x3/uL (4.8-10.8)
[2020-07-25 06:10] LABS: ANION GAP 11.7 mmol/L (8-16); CALCIUM 9.2 mg/dL (8.5-10.1); CARBON DIOXIDE 24.5 mmol/L (21.0-32.0); CREATININE - SERUM 1.3 mg/dL (0.6-1.3); POTASSIUM - SERUM 4.2 mmol/L (3.5-5.1)
[2020-07-25 06:30] VITALS: BP 139/59; BMI 24.0
[2020-07-25 07:05] LABS: APTT 27.6 SECONDS (22.8-39.4); INR 1.04 (0.85-1.17); PROTIME 12.6 SECONDS (11.6-15.0)
--- NOTE | 2020-07-25 13:07 | NUR ---
1245 - PT READY FOR D/C, ROOM CLEANING STILL IN PROCESS. PHASE I COMPLETE, SWITCHING TO PHASE 2 PROTOCOL.
[2020-07-25 14:10] VITALS: BP 114/52; BMI 25.6
--- NOTE | 2020-07-25 14:34 | NUR ---
PATIENT ARRIVED FROM PACU. ALERT AND ORIENTED. DROWSY BUT RESPONDS TO VERABL AND TACTILE STIMULI. VS WNL. DRESSING CDI. NIDHI DRAIN DRAINING AND INTACT. WILL MONITOR.
[2020-07-25 20:06] VITALS: BP 126/72
[2020-07-26] VITALS (12 sets, daily range): BP systolic 121–154; BP diastolic 45–84; Ht 157.5 cm; Wt 63.5 kg
--- NOTE | 2020-07-26 00:30 | NUR ---
CHGE OF SHIFT WALKING ROUNDS IN BED SITTING POSITION ACEWRAP TO UPPER BODY WITH NIDHI DRAINS BOTH SURGUCAL SITES X2.ANGRY STATES HAD BOTH MY BREAST TAKEN OFF AND THEY GAVE NE A FUCKIN PAIN PILL FOR PAIN,EXPLAINED CAN HAVE IV MORPHINE FOR MORE SEVERE PAIN.VOICES UNDERSTANDING. WILL CONTINUE TO MONITOR FOR ANY CHGES AND FOLLOW CURRENT PLAN OF CARE.
--- NOTE | 2020-07-26 03:42 | NUR ---
I have reviewed this patient and I concur with the Shift Assessment completed by the Licensed Practical Nurse today this shift.
[2020-07-26 06:14] LABS: BASOPHILS 0.2 % (0-2); EOSINOPHILS 1.3 % (0-7); HEMATOCRIT 36.7 % (36.0-48.0); HEMOGLOBIN 11.6 g/dL (12-16); IMMATURE GRANULOCYTES 0.3 % (0-5); LYMPHOCYTE ABS# 0.61 10x3/uL (1.18-3.74); LYMPHOCYTES 4.9 % (15-50); MCH 29.9 pg (26.0-34.0); MCHC 31.6 g/dL (31.0-37.0); MEAN PLATELET VOLUME 10.3 fL (7.4-10.4); MONOCYTES 10.7 % (2-11); NEUTROPHILS 82.6 % (40-80); PLATELET COUNT 314 10x3/uL (130-400); RBC 3.88 10x6/uL (4.00-5.40)
[2020-07-26 06:17] LABS: MCV 94.6 fL (80.0-100.0); WBC 12.6 10x3/uL (4.8-10.8)
[2020-07-26 06:31] LABS: ANION GAP 12.5 mmol/L (8-16); CALCIUM 8.1 mg/dL (8.5-10.1); CARBON DIOXIDE 23.1 mmol/L (21.0-32.0); CREATININE - SERUM 1.1 mg/dL (0.6-1.3); POTASSIUM - SERUM 4.6 mmol/L (3.5-5.1)
[2020-07-27] VITALS (7 sets, daily range): BP systolic 105–161; BP diastolic 52–76
--- NOTE | 2020-07-27 05:08 | NUR ---
Patient had pain managed with the prescribed pain medication, she appeared to rest throughout the night. She is currently resting in bed with her eyes closed.
--- NOTE | 2020-07-27 08:08 | NUR ---
PT SITTING UP WITH THE BED. SCD'S ON. NO NEEDS AT THIS TIME. CL IN REACH. WCTM
--- NOTE | 2020-07-27 10:50 | NUR ---
PT ASSISTED TO BSC AND BACK. TOLERATED WELL. CL IN REACH. WCTM
--- NOTE | 2020-07-27 14:30 | NUR ---
FRIEND IN ROOM. STATES HER NAUSEA IS BETTER. STATES SHE IS ABOUT TO TRY AND EAT. CL IN REACH. WCMT
--- NOTE | 2020-07-27 15:25 | NUR ---
PT ASSISTED TO BATHROOM. WAS A LITTLE UNSTABLE ON HER FEET. ATTACHED NIDHI DRAINS TO A SAFETY PIN AND TO A STAT LOCK TO HELP KEEP NIDHI DRAINS IN PLACE. ASSISTED PT BACK TO BED. NO FURTHER NEEDS AT THIS TIME. CL IN REACH. OFF O2 AT THIS TIME. SATING 92% ON ROOM AIR. WCTM
[2020-07-27 17:17] LABS: CKMB 1.8 U/L (0.0-3.6); CREATINE KINASE 243 UL (21-215); TROPONIN-I < 0.017 ng/mL (0.000-0.060)
--- NOTE | 2020-07-27 23:15 | NUR ---
LEFT HAND IV LEAKING. REMOVED CATHETER INTACT. RESITED 22 G IV TO RIGHT FOREARM 1ST ATTEMPT. GAVE ZOFRAN 4 MG IV PUSH FOR NAUSEA. ASSISTED PT UP TO BATHROOM. HOOKED SCD'S BACK UP. ENCOURAGED INCENTIVE SPIROMETER. NO OTHER NEEDS. WILL CONTINUE TO NONITOR.
[2020-07-28 04:00] VITALS: BP 135/57
[2020-07-28 06:43] LABS: BASOPHILS 0.2 % (0-2); EOSINOPHILS 4.7 % (0-7); HEMATOCRIT 29.9 % (36.0-48.0); HEMOGLOBIN 9.4 g/dL (12-16); IMMATURE GRANULOCYTES 0.1 % (0-5); LYMPHOCYTE ABS# 1.01 10x3/uL (1.18-3.74); LYMPHOCYTES 11.9 % (15-50); MCH 29.6 pg (26.0-34.0); MCHC 31.4 g/dL (31.0-37.0); MEAN PLATELET VOLUME 10.2 fL (7.4-10.4); MONOCYTES 10.7 % (2-11); NEUTROPHIL ABS# 6.12 10x3/uL (1.56-6.13); NEUTROPHILS 72.4 % (40-80); PLATELET COUNT 298 10x3/uL (130-400); RBC 3.18 10x6/uL (4.00-5.40); RDW 13.4 % (11.5-14.5); WBC 8.5 10x3/uL (4.8-10.8)
[2020-07-28 07:03] LABS: ANION GAP 10.3 mmol/L (8-16); CALCIUM 8.9 mg/dL (8.5-10.1); CARBON DIOXIDE 26.6 mmol/L (21.0-32.0); CREATININE - SERUM 0.9 mg/dL (0.6-1.3); POTASSIUM - SERUM 3.9 mmol/L (3.5-5.1)
--- NOTE | 2020-07-28 08:19 | NUR ---
PT ASSISTED TO CHAIR. NO FURTHER NEEDS AT THIS TIME. WCTM
[2020-07-28 08:45] VITALS: BP 138/51
[2020-07-28] MEDS ORDERED: HYDROCODON-ACE1 EA10 PO ×2 (09:26→10:41)
--- NOTE | 2020-07-28 10:20 | NUR ---
IV THERAPY REMOVED FROM RIGHT FOREARM WITH TIP INTACT.
--- NOTE | 2020-07-28 11:15 | NUR ---
PT DISCHARGE INSTRUCTIONS GIVEN. PT AND SISTER VERBALIZED UNDERSTANDING ON INSTRUCTIONS CONCERNING NIDHI DRAINS AND RECORDING OUTPUTS. WELL TAKING CARE OF INCISION SITE. CL IN REACH. WAITING TO TALK TO TARI WITH CASE MANAGEMENT.
--- NOTE | 2020-07-28 11:40 | MORECARE ---
CASE MANAGEMENT DISCHARGE SUMMARY PATIENT: THEO FATIMA UNIT: [id number] ADM DATE: 07/26/20 AGE: 65 : 53 SEX: F ROOM/BED: D.8399 AUTHOR: MOHIT,DOC PHYSICIAN: REFERRING PHYSICIAN: LY MEDRANO MD DATE OF SERVICE: 07/28/20 Discharge Plan Patient Name: THEO FATIMA Facility: [facility]:[place] : 1955 Planned Disposition: Anticipated Discharge Date: Discharge Date: 07/28/2020 Expected LOS: Initial Reviewer: [email or web address] Initial Review Date: 07/26/2020 Generated: 07/28/20 12:39 pm Comments DCP- Discharge Planning Updated by [email or web address]: Marina Patel on 07/28/20 10:[address] Patient Name: THEO FATIMA Admission Status: Elective Accout number: [id number] Admission Date: 07-26-2020 : 1955 Admission Diagnosis: Attending: LY MEDRANO Current LOS: 2 Anticipated DC Date: Planned Disposition: Primary Insurance: MEDICARE A & B Discharge Planning Comments: CM met with patient at bedside after obtaining verbal consent. CM discussed availability / needs of home health, REHAB and medical equipment. PATIENT DENIES NEED FOR HOME HEALTH OR MEDICAL EQUIPMENT. SHE STATES HER SISTER IS GOING TO STAY WITH HER FOR SEVERAL DAYS. SHE STATES THE NURSE HAS ALREADY DONE TEACHING ABOUT THE DRAINS SHE HAS. HER FOLLOW UP APPOINTMENT IS WITH DR. MEDRANO NEXT WEEK. I GAVE PATIENT MY CONTACT INFORMATION IN CASE SHE CHANGES HER MIND ON HOME HEALTH. CM TO FOLLOW AND ASSIST NEEDED. Welding Machine Operator Helper Arc: Marina Patel DCPIA - Discharge Planning Initial Assessment Updated by [email or web address]: Marina Patel on 07/28/20 11:33 am * Is the patient Alert and Oriented? Yes * PCP HANK * Pharmacy [facility] * Preadmission Environment Home Alone * ADLs Independent * Equipment None * Community resources currently utilized None * Additional services required to return to the preadmission environment? No * Can the patient safely return to the preadmission environment? Yes * Has this patient been hospitalized within the prior 30 days at any hospital? No Patient Name: THEO FATIMA Page [id number] at 1140 All edits/amendments must be made on the electronic document DICTATION DATE: 07/28/20 1140 LEAD ACCOUNTANT: JERRY 07/28/20 1140 RPT#: [id number] DC DATE:07/28/20 STATUS: DIS IN [facility] [address] [facility] [place] [address] END OF REPORT
--- NOTE | 2020-07-31 08:26 | MORECARE ---
CASE MANAGEMENT DISCHARGE SUMMARY PATIENT: THEO FATIMA UNIT: [id number] ADM DATE: 07/26/20 AGE: 65 : 51 SEX: F ROOM/BED: D.2581 AUTHOR: MOHIT,DOC PHYSICIAN: REFERRING PHYSICIAN: LY MEDRANO MD DATE OF SERVICE: 07/31/20 Discharge Plan Patient Name: THEO FATIMA Facility: [facility]:[place] : 1955 Planned Disposition: Anticipated Discharge Date: Discharge Date: 07/28/2020 Expected LOS: Initial Reviewer: [email or web address] Initial Review Date: 07/26/2020 Generated: 07/31/20 9:25 am Comments DCP- Discharge Planning Updated by [email or web address]: Marina Patel on 07/28/20 9:[address] Patient Name: THEO FATIMA Admission Status: Elective Accout number: [id number] Admission Date: 07-26-2020 : 1955 Admission Diagnosis: Attending: LY MEDRANO Current LOS: 2 Anticipated DC Date: Planned Disposition: Primary Insurance: MEDICARE A & B Discharge Planning Comments: CM met with patient at bedside after obtaining verbal consent. CM discussed availability / needs of home health, REHAB and medical equipment. PATIENT DENIES NEED FOR HOME HEALTH OR MEDICAL EQUIPMENT. SHE STATES HER SISTER IS GOING TO STAY WITH HER FOR SEVERAL DAYS. SHE STATES THE NURSE HAS ALREADY DONE TEACHING ABOUT THE DRAINS SHE HAS. HER FOLLOW UP APPOINTMENT IS WITH DR. MEDRANO NEXT WEEK. I GAVE PATIENT MY CONTACT INFORMATION IN CASE SHE CHANGES HER MIND ON HOME HEALTH. CM TO FOLLOW AND ASSIST NEEDED. Catering Service Manager: Marina Patel DCPIA - Discharge Planning Initial Assessment Updated by [email or web address]: Marina Patel on 07/28/20 11:33 am * Is the patient Alert and Oriented? Yes * PCP HANK * Pharmacy [facility] * Preadmission Environment Home Alone * ADLs Independent * Equipment None * Community resources currently utilized None * Additional services required to return to the preadmission environment? No * Can the patient safely return to the preadmission environment? Yes * Has this patient been hospitalized within the prior 30 days at any hospital? No Last DP export: 07/28/20 9:40 a Patient Name: THEO FATIMA Page 82038 at 0826 All edits/amendments must be made on the electronic document DICTATION DATE: 07/31/20824 COMBER OPERATOR: JERRY 07/31/20824 RPT#: [id number] DC DATE:07/28/20 STATUS: DIS IN [facility] [address] [place] [address] END OF REPORT
== END 2020-07-28 11:39 | disposition home or self-care (01) | DRG 580 ==
LOC: D.MS 05:35 → D.OPS 05:35 → D.NM 08:00 → EDSTATUS 08:00 → D.OPS 08:00 → D.MS 14:15 → D.OPS 14:15 → D.MS 07-26 11:36
PROVIDERS: Anesthesiology; General Practice; ADMIT Surgery; ATTEND Surgery
PROC: 07B60ZZ Excision of Left Axillary Lymphatic, Open Approach (ICD-10-PCS; 2020-07-26)
PROC: 0HTV0ZZ Resection of Bilateral Breast, Open Approach (ICD-10-PCS; 2020-07-26)
PROC: 0W9B30Z Drainage of Left Pleural Cavity with Drainage Device, Percutaneous Approach (ICD-10-PCS; principal; 2020-07-26 10:20)
DX: C50.912 Malignant neoplasm of unspecified site of left female breast (principal); J95.811 Postprocedural pneumothorax; C50.911 Malignant neoplasm of unspecified site of right female breast; Y83.9 Surgical procedure, unspecified as the cause of abnormal reaction of the patient, or of later complication, without mention of misadventure at the time of the procedure; I25.10 Atherosclerotic heart disease of native coronary artery without angina pectoris; E78.00 Pure hypercholesterolemia, unspecified; I10 Essential (primary) hypertension; E11.9 Type 2 diabetes mellitus without complications

== ENCOUNTER 2020-09-29 06:43 | Day surgery (SDC) | payer MEDICARE, MEDICAID ==
[~2020-09-29] VITALS: Ht 157.5 cm; Wt 55.8 kg
--- NOTE | ~2020-09-29 | OP ---
PATIENT NAME: THEO FATIMA MEDICAL RECORD: [id number] :51 LOCATION:D.OPS ADMISSION DATE: SURGEON: LY MEDRANO MD DATE OF OPERATION: 09/29/2020 PREOPERATIVE DIAGNOSES: 1. Necrotic right chest wound. 2. History of breast cancer, status post bilateral simple mastectomies. 3. Diabetes mellitus. 4. Hypertension. POSTOPERATIVE DIAGNOSES: 1. Necrotic right chest wound. 2. History of breast cancer, status post bilateral simple mastectomies. 3. Diabetes mellitus. 4. Hypertension. PROCEDURE: 1. Excisional debridement of right chest wound 12 x 5 cm. 2. Wound VAC placement with black sponge. SURGEON: Ly Medrano MD DESCRIPTION OF PROCEDURE: The patient's right chest was prepped and draped in sterile fashion. A lot of necrotic fatty tissue was present overlying the muscle. We went ahead and dissected all of this fatty tissue off of the muscle. Once we approached the muscle, we could see there was some good viable tissue present. While resecting this fatty tissue, there was no sign of any bleeding. We then excised some of the edges of the skin going mainly medially and laterally. Because both of these areas had small collections of fluid, they were not grossly purulent, but had a foul odor. These wounds were excised all the way out to normal appearing fatty tissue. Once the wound was completely opened, we measured it out at 12 x 5 cm. We irrigated out the wound bed with peroxide and saline solution. Any bleeding that was found was treated with electrocautery. The patient had a wound VAC black sponge cut to the appropriate size and this was inserted into the wound. There was good suction onto the wound VAC at the conclusion of the case. COMPLICATIONS: None. CONDITION: Stable. ANESTHESIA: General endotracheal. BLOOD LOSS: Minimal. TRANSINT:[id number] Voice Confirmation ID: [id number] DOCUMENT ID: [id number] OPERATIVE REPORT [id number] THEO FATIMA CHRISTIAN MD CC: CATARINA MCKINNEY [id number] DICTATION DATE: 09/29/20 0959 RURAL MAIL CONTRACTOR: 09/29/20 1457 [facility] 09/29/20 [place] [address]
[~2020-09-29 06:43] MED LIST changes: -CLARITIN 10 MG10 MG; +CLARITIN 10 MG10 MG PO; +MELATONIN5 MG PO; +VITAMIN D325 MC1 PO
[2020-09-29 07:26] LABS: ANION GAP 15.1 mmol/L (8-16); CALCIUM 9.4 mg/dL (8.5-10.1); CARBON DIOXIDE 23.3 mmol/L (21.0-32.0); CREATININE - SERUM 1.2 mg/dL (0.6-1.3); POTASSIUM - SERUM 4.4 mmol/L (3.5-5.1)
[2020-09-29 07:44] LABS: BASOPHILS 0.8 % (0-2); EOSINOPHILS 4.6 % (0-7); HEMATOCRIT 32.2 % (36.0-48.0); HEMOGLOBIN 10.1 g/dL (12-16); IMMATURE GRANULOCYTES 0.5 % (0-5); LYMPHOCYTE ABS# 1.34 10x3/uL (1.18-3.74); LYMPHOCYTES 13.4 % (15-50); MCH 27.7 pg (26.0-34.0); MCHC 31.4 g/dL (31.0-37.0); MCV 88.5 fL (80.0-100.0); MEAN PLATELET VOLUME 9.9 fL (7.4-10.4); MONOCYTES 7.4 % (2-11); NEUTROPHIL ABS# 7.33 10x3/uL (1.56-6.13); NEUTROPHILS 73.3 % (40-80); RBC 3.64 10x6/uL (4.00-5.40); RDW 13.4 % (11.5-14.5)
[2020-09-29 07:48] LABS: PLATELET COUNT 534 10x3/uL (130-400)
[2020-09-29 07:53] VITALS: BP 138/54; Ht 157.5 cm; Wt 55.8 kg
[2020-09-29] MEDS ORDERED: HYDROCODON-ACE1 EAC7 PO (09:55)
--- NOTE | 2020-09-29 11:48 | NUR ---
1040 TARI NOTIFIED THE STERILE PROCESSING TECHNICIAN TO ARRANGE M-W-F
--- NOTE | 2020-09-29 12:09 | NUR ---
1210 CORPORATE STATISTICAL FINANCIAL ANALYST TALKING TO PT TO SET UP DRESSING CHANGES M-W-F
== END 2020-09-29 13:05 | disposition home or self-care (01) ==
LOC: D.OPS 06:43
PROVIDERS: ATTEND Surgery
DX: S21.101D Unspecified open wound of right front wall of thorax without penetration into thoracic cavity, subsequent encounter (principal); Z85.3 Personal history of malignant neoplasm of breast; E11.9 Type 2 diabetes mellitus without complications; I10 Essential (primary) hypertension

== ENCOUNTER 2020-11-12 11:36 | Inpatient (IN) | payer MEDICARE ==
[2020-11-12] VITALS (7 sets, daily range): BP systolic 134–156; BP diastolic 51–65
[~2020-11-12] VITALS: Ht 157.5 cm; Wt 61.8 kg
--- NOTE | ~2020-11-12 | HEMODYNAMI ---
PATIENT:THEO FATIMA MEDICAL RECORD: [id number] : 51 LOCATION:[place] [address] ADMISSION DATE: 11/13/20 Generatedon:116:40 Patient name: THEO FATIMA Patient #: [id number] SSN: DO B: 1955 Date of study: 11/13/2020 Page: Of Hemodynamic Procedure Report Patient Data Patient Demographics Procedure consent was obtained First Name: THEO Gender: Female Last Name: KUSHAL : 1955 [facility] Initial: K Age: 65 year(s) Patient #: [id number] Race: Unknown Additional ID: [id number] Contact details [address]: [address] [place] [address] State: [place] City: [place] Zip code: [address] Past Medical History Allergies Allergen Reaction Date Comments Reported Morphine 11/13/2020 Admission Admission Data Admission Date: 11/13/2020 Admission Time: 15:46 Room #: [facility] Height (in.): 61.81 BSA: 1.53 (m2) Height (cm.): 157 BMI: 21.91 (kg/m2) Weight (lbs.): 119.05 Weight (kg.): 54 Procedure Procedure Types Cath Procedure Diagnostic Procedure Intra-Aortic Balloon Pump Sedation Charges Moderate Sedation 10-24 minutes Procedure Description Procedure Date Procedure Date: 11/13/2020 Procedure Start Time: 16:21 Procedure End Time: 16:37 Procedure Staff Name Function Wing Lopez MD Performing Physician Chantel Amaya RT Monitor Bing Cam RT Scrub Emmie Cruz RN Nurse Dennis Tesfaye RN Nurse Procedure Data Cath Procedure Fluoroscopy Diagnostic fluoroscopy Total fluoroscopy Time: 0.7 time: 0.7 min min Diagnostic fluoroscopy Total fluoroscopy dose: 9 dose: 9 mGy mGy Entry Location Entry Primary Successful Side Size Upsize Upsize Entry Closure Succes sful Closure Location (Fr) 1 (Fr) 2 (Fr) Remarks Device Remarks Femoral Right 8 Fr artery Estimated blood loss: 5 ml Procedure Complications No complications Procedure Medications Medication Administration Route Dosage Heparin Flush Bag added to field 1 bags (1000units/500ml NS) Oxygen etCO2 Nasal cannula 3 l/min Versed I.V. 1 mg Fentanyl I.V. 50 mcg Versed I.V. 0.5 mg Fentanyl I.V. 25 mcg Heparin Drip I.V. drip 900 units/hr (24429ydecw/250 D5W) Mechanical Ventricular Support IABP: Hemodynamics Rest BSA: 1.53 (m2) O2 Consumption: Estimated: 152.57 (ml/min) O2 Consumption indexed : Estimated:99.72 (ml/min/m) Heart Rate: 88 (bpm) Snapshots Pre Cath Intra NCS Post Cath Vital Signs Time Heart Resp SPO2 etCO2 NIBP (mmHg) Rhythm Pain Sedation Rate (ipm) (%) (mmHg) Status Level (bpm) 15:47:02 88 19 96 34.5 141/69(107) NSR 0 (11) 10(A) , No pain 15:51:24 83 18 99 32.3 159/71(110) NSR 0 (11) 10(A) , No pain 15:55:42 86 17 99 21.7 144/77(119) NSR 0 (11) 10(A) , No pain 16:00:04 76 16 100 32.2 142/66(112) NSR 0 (11) 10(A) , No pain 16:04:29 79 16 100 34.5 150/59(97) NSR 0 (11) 10(A) , No pain 16:08:51 76 19 100 14.2 144/62(103) NSR 0 (11) 10(A) , No pain 16:13:11 77 15 100 22.5 121/54(100) NSR 0 (11) 10(A) , No pain 16:17:29 72 13 100 2.2 120/54(91) NSR 0 (11) 10(A) , No pain 16:21:47 74 13 100 1.5 130/50(89) NSR 0 (11) 10(A) , No pain 16:25:59 74 12 100 0 132/64(105) NSR 0 (11) 10(A) , No pain 16:30:58 84 14 100 23.2 Measuring NSR 0 (11) 10(A) , No pain 16:32:22 79 15 100 26.2 Time NSR 0 (11) 10(A) Exceeded , No pain 16:35:53 80 17 100 18.7 Time NSR 0 (11) 10(A) Exceeded , No pain Medications Time Medication Route Dose Verified Delivered Reason No santiago Effectiveness by by 16:10:20 Heparin Drip I.V. 900 Wing Dennis for co ntinued (12772bcijy/250 drip units/hr St Ferdinand Tesfaye RN anticoagulation per D5W) MD order 16:10:42 Heparin Flush added 1 bags Wing Dennis for to Bag to St Ferdinand Tesfaye RN anticoagulation pressure (1000units/500ml field line NS) 16:16:48 Oxygen etCO2 3 l/min Wing Dennis used for Nasal St Ferdinand Tesfaye RN procedure cannula 16:20:07 Versed I.V. 1 mg Wing Dennis for sedation St Ferdinand Tesfaye RN, MD 16:20:14 Fentanyl I.V. 50 mcg Wing Dennis for sedation St Ferdinand Tesfaye RN, MD 16:26:54 Versed I.V. 0.5 mg Wing Dennis for sedation St Ferdinand Tesfaye RN, MD 16:26:58 Fentanyl I.V. 25 mcg Wing Dennis for sedation St Ferdinand Tesfaye RN, MD Procedure Log Time Note 15:30:27 Chantel Amaya RT(R) sent for patient. Start room use. 15:37:52 Informed consent obtained and on chart 15:37:59 IABP : 15:38:18 Patient Weight : 119.05 lbs 15:38:18 Patient Height : 61.81 inches 15:39:42 Time tracking: Regular hours (M-F 7:00 - 5:00) 15:39:46 Plan of Care:Hemodynamics will remain stable., Cardiac rhythm will remain stable., Comfort level will be maintained., Respiratory function will remain adequate., Patient/ family verbilizes understanding of procedure., Procedure tolerated without complication., Recovers from procedure without complications.. 15:45:44 Patient received from Pre/Post Procedure Room to CCL 1 Alert and oriented. Tansferred to table in Supine position. 15:45:45 Warm blankets applied, and ruth ann hugger turned on for patient comfort. 15:45:45 Correct patient and procedure confirmed by team. 15:45:46 ECG and BP/O2 sat monitors applied to patient. 15:45:47 Vital chart was started 15:45:49 Baseline sample Acquired. 15:45:52 Rhythm: sinus rhythm 15:45:53 Full Disclosure recording started 15:45:54 Pre-procedure instructions explained to patient. 15:45:55 Pre-op teaching completed and patient verbalized understanding. 15:45:57 Family unavailable. 15:45:58 Patient NPO since Midnight. 15:46:10 Patient allergic to Morphine 15:46:18 Is patient on blood thinner?Yes 15:46:39 PT. ON A HEPARIN DRIP 15:47:20 Previous problem with sedation/anesthesia? No ? 15:47:22 Snore? Yes 15:47:23 Sleep apnea? No 15:47:24 Deviated septum? No 15:47:25 Opens mouth fully? Yes 15:47:26 Sticks out tongue? Yes 15:47:30 Airway obstruction? Yes EMPHYSEMA 15:47:33 Dentures? No ? 15:47:35 Patient diabetic? No. 15:47:39 Pre procedure: right dorsailis pedis pulse 1+ Palpable, but thready & weak; easily obliterated 15:47:41 Patient pain scale 0/10 ?. 15:47:48 IV patent on arrival in left hand with 0.45%NaCl at O. 15:47:49 Lab results completed and on chart. 15:47:56 Right groin area was prepped with chlora-prep and draped in sterile fashion 15:47:56 Alarms reviewed by R. N. 15:47:57 Sharps counted by scrub and verified by R.N. 15:48:34 Use device set CATH PACK 15:48:36 Medline Cath Pack ([id number]) opened to sterile field. 15:48:50 TUBING High Pressure Extension (IABP) opened to sterile field. 15:50:[address] Navjot ([id number]) opened to sterile field. 15:50:21 IABP 34cm balloon catheter ([id number]) opened to sterile field. 15:55:25 2-0 Silk 685H opened to sterile field. 15:55:26 2-0 Silk 685H opened to sterile field. 15:57:00 Transported via stretcher into farm [employer] for placement of IABP. 16:10:20 Heparin Drip (60554wnael/250 D5W) 900 units/hr I.V. drip was administered by Dennis Tesfaye RN; for anticoagulation; continued per MD order Verbal order read back and verified. 16:10:42 Heparin Flush Bag (1000units/500ml NS) 1 bags added to field was administered by Dennis Tesfaye RN; for anticoagulation; to pressure line Verbal order read back and verified. 16:16:48 Oxygen 3 l/min etCO2 Nasal cannula was administered by Dennis Tesfaye RN; used for procedure; Verbal order read back and verified. 16:18:59 --------ALL STOP TIME OUT------ 16:19:00 Final Timeout: patient, procedure, and site verified with staff and physician. All members of the team are in agreement. 16:19:02 Right groin site verified by team. 16:19:07 Fire Safety Assessment: A--An alcohol-based skin anteseptic being used preoperatively., C--Open oxygen or nitrous oxide is being used. 16:19:10 Physical assessment completed. ASA score P 2 - A patient with mild systemic disease as per Wing Lopez MD. 16:19:13 Sedation plan: IV Moderate Sedation Medication:Versed, Fentanyl 16:20:07 Versed 1 mg I.V. was administered by Dennis Tesfaye RN; for sedation; Verbal order read back and verified. 16:20:14 Fentanyl 50 mcg I.V. was administered by Dennis Tesfaye RN; for sedation; Verbal order read back and verified. 16:21:53 Procedure started. 16:22:46 PT. HAS 5FR SHEATH IN RIGHT GROIN FROM [facility] PROCEDURE THIS MORNING 16:23:33 A 8 Fr sheath was inserted into the Right Femoral artery 16:25:20 34cc IABP inserted into the RFA . 16:26:24 Augmentation: 1:1 per physician. 16:26:28 Trigger: Pressure 16::54 Versed 0.5 mg I.V. was administered by Dennis Tesfaye RN; for sedation; Verbal order read back and verified. 16:26:58 Fentanyl 25 mcg I.V. was administered by Dennis Tesfaye RN; for sedation; Verbal order read back and verified. 16:30:03 Procedure ended.(Physican Out) 16:30:37 8FR SHEATH was sutured in with 2-0 SILK. 16:31:[address] AND SUTURED WITH 2-0 SILK 16:31:11 Fluoroscopy time 00.70 minutes. 16:31:14 Fluoroscopy dose: 9 mGy 16:31:14 Flurop Dose total: 9 16:31:19 Dose Area Product 878 mGy/cm. 16:31:22 Sharps counted by scrub and verified by R.N. 16:31:27 Post-op/insertion site Right Femoral artery dressed using a 4 x 4 and Tegaderm. 16:31:29 Post-procedure physical assessment completed. ASA score P 2 - A patient with mild systemic disease as per Wing Lopez MD. 16:31:32 Post procedure rhythm: unchanged. 16:31:35 Estimated blood loss: 5 ml 16:31:36 Post procedure instruction explained to patient.Patient verbalizes understanding. 16:31:36 Patient needs reinforcement of post procedure teaching. 16:31:50 Procedure type changed to Cath procedure, Diagnostic procedure, Intra-Aortic Balloon Pump, Sedation Charges, Moderate Sedation 10-24 minutes 16:32:39 Procedure and supply charges have been captured, reviewed, submitted and are correct. 16:32:42 Procedure Complication : No complications 16:32:57 Operative report dictated upon procedure completion. 16:32:57 See physician's report for complete and final results. 16:34:27 Report given to CVICU. 16:37:48 Vital chart was stopped 16:37:52 Patient transfered to CVICU with Bed. 16:37:54 Procedure ended. 16:37:54 Full Disclosure recording stopped 16:37:57 End room use (Document Last) 16:39:59 End room use (Document Last) Device Usage Item Name Manufacture Quantity Catalog Number [facility] Minimal Lot# / Charge Number Stock Stock Serial# Code Medline Cath Medline 1 [id number] 5 Pack ([id number]) TUBING [employer] 1 [id number] 5 Pressure Medical Extension (IABP) SHEATH [address]FR [facility] Navjot 1 [id number] [id number] 5 Navjot ([id number]) IABP 34cm [facility] 1 [id number] [id number] 1 [employer] catheter ([id number]) ([id number]) 2-0 Silk 685H Ethicon 2 685H [id number] 5 Signature Audit Fay Stage Time Signature Unsigned Intra-Procedure 11/13/2020 Chantel Amaya 4:39:59 PM RT(R) Intra-Procedure 11/13/2020 Emmie Cruz RN 4:40:15 PM Intra-Procedure 11/13/2020 Wing Devine 4:40:30 PM Ferdinand [facility]ETZ [facility] [address] [place] [address]
--- NOTE | ~2020-11-12 | HEMODYNAMI ---
PATIENT:THEO FATIMA MEDICAL RECORD: [id number] : 51 LOCATION:[address] ADMISSION DATE: 11/12/20 Generatedon:110:23 Patient name: THEO FATIMA Patient #: [id number] SSN: DO B: 1955 Date of study: 11/13/2020 Page: Of Hemodynamic Procedure Report Patient Data Patient Demographics Procedure consent was obtained First Name: THEO Gender: Female Last Name: KUSHAL : 1955 [facility] Initial: K Age: 65 year(s) Patient #: [id number] Race: Unknown Additional ID: [id number] Contact details [address]: [address] [place] [address] State: [place] City: [place] Zip code: [address] Past Medical History Allergies: No known allergies Admission Admission Data Admission Date: 11/12/2020 Admission Time: 14:05 Room #: [facility] Height (in.): 61.81 BSA: 1.53 (m2) Height (cm.): 157 BMI: 21.91 (kg/m2) Weight (lbs.): 119.05 Weight (kg.): 54 Procedure Procedure Types Cath Procedure Diagnostic Procedure [facility] w/Coronaries Sedation Charges Moderate Sedation 10-24 minutes Peripheral Cath Diagnostic Procedure Abd/Extremity Aortagram Procedure Description Procedure Date Procedure Date: 11/13/2020 Procedure Start Time: 9:46 Procedure End Time: 10:19 Procedure Staff Name Function Alfredo Davis MD Performing Physician Chuck Martinez RT Monitor Chantel Amaya RT Scrub Dennis Tesfaye RN Nurse Procedure Data Cath Procedure Fluoroscopy Diagnostic fluoroscopy Total fluoroscopy Time: 3.2 time: 3.2 min min Diagnostic fluoroscopy Total fluoroscopy dose: 637 dose: 637 mGy mGy Contrast Material Contrast Material Type Amount (ml) Isovue 300 128 Entry Location Entry Primary Successful Side Size Upsize Upsize Entry Closure Succes sful Closure Location (Fr) 1 (Fr) 2 (Fr) Remarks Device Remarks Femoral Right 5 Fr 5fr artery sutured in place. Diagnostic catheters Device Type Used For End Catheter Placement MULTIPACK JL 4.0 5Fr Left Coronary catheter Angiography MULTIPACK 3DRC 5Fr Right Coronary catheter Angiography MULTIPACK Pigtail 5 Fr LV Angiography catheter Procedure Complications No complications Procedure Medications Medication Administration Route Dosage 0.9% NaCl I.V. 100 ml/hr Oxygen etCO2 Nasal cannula 2 l/min Heparin Flush Bag added to field 2 bags (1000units/500ml NS) Lidocaine 2% added to field 20 Versed I.V. 1 mg Fentanyl I.V. 50 mcg Fentanyl I.V. 50 mcg Lopressor I.V. 2.5 mg Heparin Drip I.V. drip 900 units/hr (22061clbkw/250 D5W) Heparin Flush Bag added to field 1 bags (1000units/500ml NS) Hemodynamics Rest BSA: 1.53 (m2) O2 Consumption: Estimated: 150.02 (ml/min) O2 Consumption indexed : Estimated:98.05 (ml/min/m) Heart Rate: 84 (bpm) Pressure Samples Time Site Value (mmHg) Purpose Heart Use Rate(bpm) 9:57 LV 137/4,29 EDP 100 9:58 AO 141/68(99) Pullback 104 9:58 LV 139/12,29 Pullback 104 Gradients Valve Time Site 1 Site 2 Mean SEP/DFP Peak To Heart Use (mmHg) (sec/min) Peak Rate (mmHg) (bpm) Aortic 9:58 LV AO 0 24 0 104 139/12,29 141/68(99) Calculations Valve P-P Mean Valve Index Valve Source Name Gradient Area Flow (cm2) Aortic 0 0 0 0 Snapshots Pre Cath Intra NCS Post Cath Vital Signs Time Heart Resp SPO2 etCO2 NIBP (mmHg) Rhythm Pain Sedation Rate (ipm) (%) (mmHg) Status Level (bpm) 9:31:23 82 16 98 0 142/66(106) NSR 0 (11) 10(A) , No pain 9:35:37 82 18 99 0 140/68(108) NSR 0 (11) 10(A) , No pain 9:40:02 84 22 96 0 132/54(92) NSR 0 (11) 10(A) , No pain 9:44:20 79 14 96 15 113/54(85) NSR 0 (11) 10(A) , No pain 9:48:33 77 15 98 0 126/57(89) NSR 0 (11) 9(A) , No pain 9:52:46 84 30 98 11.2 106/51(82) NSR 0 (11) 9(A) , No pain 9:56:53 100 32 98 14.2 114/65(91) NSR 0 (11) 9(A) , No pain 10:01:01 112 9 96 13.5 125/78(100) NSR 0 (11) 9(A) , No pain 10:05:09 105 18 88 8.2 120/75(93) NSR 0 (11) 10(A) , No pain 10:09:23 74 13 96 33.8 124/61(94) NSR 0 (11) 10(A) , No pain 10:13:35 75 16 100 35.3 114/59(83) NSR 0 (11) 10(A) , No pain Medications Time Medication Route Dose Verified Delivered Reason No santiago Effectiveness by by 9:44:26 0.9% NaCl I.V. 100 Alfredo Dennis used for ml/hr Ryan Tesfaye dog or horse racing official 9:44:35 Oxygen etCO2 2 l/min Alfredo Dennis used for Nasal Ryan Tesfaye RN procedure cannula 9:44:45 Heparin Flush added 2 bags Alfredo Alfredo used for Bag to Ryan Davis MD procedure (1000units/500ml field NS) 9:44:53 Lidocaine 2% added 20ml Alfredo Alfredo for local to vial Ryan Davis MD anesthetic field 9:45:00 Versed I.V. 1 mg Alfredo Dennis for sedation Ryan Tesfaye RN 9:45:06 Fentanyl I.V. 50 mcg Alfredo Dennis for sedation Ryan Tesfaye RN 10:00:34 Fentanyl I.V. 50 mcg Alfredo Dennis for sedation Ryan Tesfaye RN 10:05:11 Lopressor I.V. 2.5 mg Alfredo Dennis for arrhythmia Ryan Tesfaye RN 10:13:45 Heparin Flush added 1 bags Alfredo Dennis used for to Bag to Ryan Tesfaye RN procedure pressure (1000units/500ml field line NS) 10:13:45 Heparin Drip I.V. 900 Alfredo Dennis for (15702flqef/250 drip units/hr Ryan Tesfaye RN anticoagulation D5W) Procedure Log Time Note 8:52:51 Informed consent obtained and on chart 8:54:29 Procedure Status Urgent Heart Cath (IP). 8:54:31 Time tracking: Regular hours (M-F 7:00 - 5:00) 8:54:34 Plan of Care:Hemodynamics will remain stable., Cardiac rhythm will remain stable., Comfort level will be maintained., Respiratory function will remain adequate., Patient/ family verbilizes understanding of procedure., Procedure tolerated without complication., Recovers from procedure without complications.. 8:54:38 H&P Date Dictated: 11/13/2020 ER History on chart.. 8:57:06 Patient Weight : 119.05 lbs 8:58:16 Patient Height : 61.81 inches 8:58:23 Dennis Tesfaye RN sent for patient. Start room use. 9:21:15 Warm blankets applied, and ruth ann hugger turned on for patient comfort. 9:21:15 Correct patient and procedure confirmed by team. 9:21:16 ECG and BP/O2 sat monitors applied to patient. 9:27:41 Full Disclosure recording started 9:27:42 Pre-procedure instructions explained to patient. 9:27:43 Pre-op teaching completed and patient verbalized understanding. 9:30:10 Vital chart was started 9:30:12 Baseline sample Acquired. 9:30:15 Rhythm: sinus rhythm 9:30:20 Family unavailable. 9:30:21 Patient NPO since Midnight. 9:30:26 Patient allergic to No known allergies 9:30:28 Is the patient allergic to Iodine/contrast media? No. 9:30:29 Is patient on blood thinner?No 9:30:31 Patient diabetic? Yes. 9:30:33 If diabetic: On Metformin? Yes 9:30:35 If on Metformin: Last Dose? 11/12/2020 9:30:38 Previous problem with sedation/anesthesia? No ? 9:30:39 Snore? Yes 9:30:40 Sleep apnea? No 9:30:42 Deviated septum? No 9:30:42 Opens mouth fully? Yes 9:30:43 Sticks out tongue? Yes 9:30:45 Airway obstruction? No ? 9:30:50 Dentures? No ? 9:36:47 Pre procedure: right dorsailis pedis pulse 2+ Normal; easily identifiable; not easily obliterated 9:36:52 Patient pain scale 0/10 ?. 9:37:06 IV patent on arrival in left forearm with 0.9% NaCl at [facility]. 9:37:11 Lab results completed and on chart. 9:37:24 Risk of Mortality: 0.6 9:37:28 Risk of blood transfusion: 17.1 9:37:32 Risk of KATERINA: 2.3 9:37:36 Right groin area was prepped with chlora-prep and draped in sterile fashion 9:41:08 Alarms reviewed by R. N. 9:41:09 Sharps counted by scrub and verified by R.N. 9:41:10 Physician arrived 9:41:10 --------ALL STOP TIME OUT------ 9:41:11 Final Timeout: patient, procedure, and site verified with staff and physician. All members of the team are in agreement. 9:41:30 Right groin site verified by team. 9:41:35 Fire Safety Assessment: A--An alcohol-based skin anteseptic being used preoperatively., C--Open oxygen or nitrous oxide is being used., D--An ESU, laser, or fiber-optic light is being used. 9:41:41 Physical assessment completed. ASA score P 2 - A patient with mild systemic disease as per Alfredo Davis MD. 9:41:46 2) 60-89 Mildly reduced kidney function, and other findings (as for stage 1) point to kidney disease. 9:42:11 Maximum allowable contrast dose (3.7 X eGFR X 0.75)211 ml. 9:42:15 Sedation plan: IV Moderate Sedation Medication:Versed, Fentanyl 9:44:26 0.9% NaCl 100 ml/hr I.V. was administered by Dennis Tesfaye RN; used for procedure; Verbal order read back and verified. 9:44:35 Oxygen 2 l/min etCO2 Nasal cannula was administered by Dennis Tesfaye RN; used for procedure; Verbal order read back and verified. 9:44:45 Heparin Flush Bag (1000units/500ml NS) 2 bags added to field was administered by Alfredo Davis MD; used for procedure; Verbal order read back and verified. 9:44:53 Lidocaine 2% 20ml vial added to field was administered by Alfredo Davis MD; for local anesthetic; Verbal order read back and verified. 9:45:00 Versed 1 mg I.V. was administered by Dennis Tesfaye RN; for sedation; Verbal order read back and verified. 9:45:06 Fentanyl 50 mcg I.V. was administered by Dennis Tesfaye RN; for sedation; Verbal order read back and verified. 9:45:42 Zero performed for pressure channel P1 9:45:54 Use device set Femoral Dx 9:45:56 ACIST Syringe (46346) opened to sterile field. 9:45:56 Bag Decanter (2002S) opened to sterile field. 9:45:57 Medline Cath Pack (OPEY12226) opened to sterile field. 9:45:58 ACIST Hand Control (80787) opened to sterile field. 9:45:58 ACIST Manifold (97030) opened to sterile field. 9:45:59 DIAGNOSTIC Multipack 5Fr catheter set (CB1742) opened to sterile field. 9:46:00 Tegaderm 4 x 4 (1626W) opened to sterile field. 9:46:02 SHEATH 5FR Horner (ILZ229) opened to sterile field. 9:46:02 EMERALD Guide Wire (696-396) opened to sterile field. 9:46:06 Procedure started. 9:46:20 Local anesthetic to right femoral artery with Lidocaine 2% by Alfredo Davis MD.INITIAL ACCESS ONLY 9:46:32 A 5 Fr sheath was inserted into the Right Femoral artery 9:49:42 A MULTIPACK JL 4.0 5Fr catheter was advanced over the wire and used for Left Coronary Angiography. 9:49:46 LCA angiography performed. 9:52:33 Catheter exchanged over wire. 9:52:43 A MULTIPACK 3DRC 5Fr catheter was advanced over the wire and used for Right Coronary Angiography. 9:58:00 RCA angiography performed. 9:58:01 Catheter exchanged over wire. 9:58:07 A MULTIPACK Pigtail 5 Fr catheter was advanced over the wire and used for LV Angiography. 9:58:10 LV angiography performed. 9:58:13 LV gram done using ABDALLA 9:58:17 LV hemodynamics recorded. 9:58:59 EF : 45 % 10:00:10 Injector settings: Ml/sec: 10, Volume: 20, 10:00:34 Fentanyl 50 mcg I.V. was administered by Dennis Tesfaye RN; for sedation; Verbal order read back and verified. 10:04:40 Abdominal Aortagram was performed. 10:05:11 Lopressor 2.5 mg I.V. was administered by Dennis Tesfaye RN; for arrhythmia; Verbal order read back and verified. 10:05:51 Catheter exchanged over wire. 10:07:44 Procedure ended.(Physican Out) 10:08:06 Fluoroscopy time 03.20 minutes. 10:08:13 Flurop Dose total: 637 10:08: Fluoroscopy dose: 637 mGy 10:08:20 Dose Area Product 11005 mGy/cm. 10:08:30 Contrast amount:Isovue 300 128ml. 10:08:34 Maximum allowable dose exceeded? No. 10:08:35 Sharps counted by scrub and verified by R.N. 10:08:37 Insertion/operative site no bleeding no hematoma. 10:08:40 Post-op/insertion site Right Femoral artery dressed using a 4 x 4 and Tegaderm. 10:09:01 Post right femoral artery:stable 10:09:04 Post Procedure Pulses reassessed and unchanged 10:09:07 Post procedure: right dorsailis pedis pulse 1+ Palpable, but thready & weak; easily obliterated. 10:09:11 Post procedure rhythm: unchanged. 10:09:13 Post procedure instruction explained to patient.Patient verbalizes understanding. 10:11:52 Patient needs reinforcement of post procedure teaching. 10:13:20 Procedure type changed to Cath procedure, Diagnostic procedure, LHC, LHC w/Coronaries, Sedation Charges, Moderate Sedation 10-24 minutes, Peripheral Cath Diagnostic Procedure, Abd/Extremity, Aortagram 10:13:45 Heparin Flush Bag (1000units/500ml NS) 1 bags added to field was administered by Dennis Tesfaye RN; used for procedure; to pressure line Verbal order read back and verified. 10:13:45 Heparin Drip (16041ksoxu/250 D5W) 900 units/hr I.V. drip was administered by Dennis Tesfaye RN; for anticoagulation; Verbal order read back and verified. 10:13:45 Procedure and supply charges have been captured, reviewed, submitted and are correct. 10:16:19 Procedure Complication : No complications 10:16:25 Vital chart was stopped 10:16:30 [facility] Findings: MVD- CABG consult 10:16:32 Operative report dictated upon procedure completion. 10:16:32 See physician's report for complete and final results. 10:19:06 Report given to Pre/Post Procedure Room. 10:19:10 Patient transfered to Pre/Post Procedure Room with Bed. 10:19:12 Procedure ended. 10:19:12 Full Disclosure recording stopped 10:19:21 End room use (Document Last) Device Usage Item Name Manufacture Quantity Catalog Hospital Part Current Minimal L ot# / Number Charge Number Stock Stock Serial# Code ACIST Acist 1 21515 200026 683508 954651 20 Syringe Medical (06288) Systems Inc Bag Microtek 1 292158 03207 615686 5 Decanter Medical Inc. () Medline Medline 1 [id number] 095043 38504 815507 5 Cath Pack ([id number]) ACIST Hand Acist 1 56975 876950 087878 561099 5 Control Medical (80776) Systems Inc ACIST Acist 1 79248 415328 434230 947766 5 Manifold Medical (65168) Systems Inc DIAGNOSTIC Cardinal 1 MR2001 345801 52956 707325 30 Multipack Health 5Fr catheter set (TO9476) Tegaderm 4 3M 1 1626W 638697 504868 167264 5 x 4 (1626W) SHEATH 5FR Terumo 1 HNC313 767327 581218 858630 5 Horner (JYY600) EMERALD Cardinal 1 502-455 460263 625191 383646 5 Guide Wire Health (502-455) MULTIPACK Cardinal 1 003381 5 JL 4.0 5Fr Health catheter MULTIPACK Cardinal 1 847145 5 3DRC 5Fr Health catheter MULTIPACK Cardinal 1 184730 5 Pigtail 5 Health Fr catheter Signature Audit [place] Stage Time Signature Unsigned Intra-Procedure 11/13/2020 Chuck Martinez RT(R) 10:21:21 AM Intra-Procedure 11/13/2020 Dennis Tesfaye RN 10:22:06 AM Intra-Procedure 11/13/2020 Alfredo Davis MD 10:23:37 AM [place] [id number]
--- NOTE | 2020-11-12 11:45 | NUR ---
1145: PT TO ROOM BEMS. PT C/O CHEST PAIN. EKG COMEPLETED, IV ASSESSED, PT SET TO MONITOR, BLOOD DRAWN AND SENT TO LAB. NO S/S OF ACUTE DISTRESS NOTED AT THIS TIME, WILL CONTINUE TO MONITOR. 1245: RN TO PT BEDSIDE, NO S/S OF ACUTE DISTRESS NOTED, PT UP TO BATHROOM, AMBULATES WITH A STEADY GAIT. RETURNED TO ROOM SAFELY, SET TO MONITOR.
[2020-11-12 12:05] LABS: BASOPHILS 1.2 % (0-2); EOSINOPHILS 4.2 % (0-7); HEMATOCRIT 30.8 % (36.0-48.0); HEMOGLOBIN 9.8 g/dL (12-16); LYMPHOCYTES 14.3 % (15-50); MCH 25.4 pg (26.0-34.0); MCHC 31.9 g/dL (31.0-37.0); MCV 79.5 fL (80.0-100.0); MEAN PLATELET VOLUME 7.7 fL (7.4-10.4); MONOCYTES 10.9 % (2-11); NEUTROPHILS 69.4 % (40-80); PLATELET COUNT 535 10x3/uL (130-400); RBC 3.88 10x6/uL (4.00-5.40); RDW 16.1 % (11.5-14.5); WBC 9.8 10x3/uL (4.8-10.8)
[2020-11-12 12:16] LABS: CALC OSMOLALITY 281 mosm/kg (275-300); CALCIUM 9.3 mg/dL (8.5-10.1); CARBON DIOXIDE 27.7 mmol/L (21.0-32.0); CHLORIDE - SERUM 104 mmol/L (98-107); POTASSIUM - SERUM 4.4 mmol/L (3.5-5.1); SODIUM 139 mmol/L (136-145); UREA NITROGEN 15 mg/dL (7-18); eGFR NON AFRICAN AMERICAN 58 mL/min (90-120)
[2020-11-12 12:17] LABS: GLUCOSE 155 mg/dL (74-106)
[2020-11-12 12:33] LABS: ALBUMIN 3.2 g/dL (3.4-5.0); ALKALINE PHOSPHATASE 127 U/L (30-120); ALT (SGPT) 21 U/L (10-68); BILIRUBIN - TOTAL 0.15 mg/dL (0.2-1.3); CREATINE KINASE 73 UL (21-215); PROTEIN - SERUM 7.3 g/dL (6.4-8.2)
[2020-11-12 12:33] LABS: APTT 27.4 SECONDS (22.8-39.4); INR 1.13 (0.85-1.17); PROTIME 13.4 SECONDS (11.6-15.0)
[2020-11-12 12:35] LABS: TROPONIN-I 0.017 ng/mL (0.000-0.060)
[2020-11-12 16:02] LABS: CREATINE KINASE 67 UL (21-215); TROPONIN-I 0.031 ng/mL (0.000-0.060)
[2020-11-12 20:32] LABS: % SATURATION 5 % (15-55); IRON 20 ug/dl (35-150); TOTAL IRON BIND CAPACITY 353 ug/dl (260-445); UNSAT IRON BIND CAPACITY 333 ug/dl (150-375)
[2020-11-12 22:24] LABS: CKMB 2.6 U/L (0.0-3.6); CREATINE KINASE 78 UL (21-215); TROPONIN-I 0.031 ng/mL (0.000-0.060)
[2020-11-13] VITALS (21 sets, daily range): BP systolic 108–159; BP diastolic 35–68; BMI 21.8
[2020-11-13 03:58] LABS: CKMB 2.6 U/L (0.0-3.6); CREATINE KINASE 69 UL (21-215); TROPONIN-I < 0.017 ng/mL (0.000-0.060)
[2020-11-13 06:53] LABS: EOSINOPHILS 4.5 % (0-7); HEMATOCRIT 30.6 % (36.0-48.0); HEMOGLOBIN 9.6 g/dL (12-16); LYMPHOCYTES 13.6 % (15-50); MCH 25.6 pg (26.0-34.0); MCHC 31.4 g/dL (31.0-37.0); MEAN PLATELET VOLUME 8.3 fL (7.4-10.4); MONOCYTES 9.4 % (2-11); NEUTROPHILS 71.5 % (40-80); PLATELET COUNT 515 10x3/uL (130-400); RBC 3.75 10x6/uL (4.00-5.40); RDW 15.4 % (11.5-14.5); WBC 10.7 10x3/uL (4.8-10.8)
[2020-11-13 07:01] LABS: ALBUMIN 3.1 g/dL (3.4-5.0); ALKALINE PHOSPHATASE 122 U/L (30-120); ALT (SGPT) 20 U/L (10-68); BILIRUBIN - TOTAL 0.14 mg/dL (0.2-1.3); CALC OSMOLALITY 284 mosm/kg (275-300); CALCIUM 8.9 mg/dL (8.5-10.1); CARBON DIOXIDE 26.8 mmol/L (21.0-32.0); CHLORIDE - SERUM 106 mmol/L (98-107); CREATININE - SERUM 0.8 mg/dL (0.6-1.3); GLUCOSE 146 mg/dL (74-106); PROTEIN - SERUM 7.1 g/dL (6.4-8.2); SODIUM 141 mmol/L (136-145); UREA NITROGEN 16 mg/dL (7-18); eGFR NON AFRICAN AMERICAN 76 mL/min (90-120)
[2020-11-13 07:20] LABS: MCV 81.6 fL (80.0-100.0)
--- NOTE | 2020-11-13 07:39 | NUR ---
ATTEMPTED TO CALL REPORT TO FLOOR. RN IS IN ANOTHER PT ROOM, STATES THEY WILL CALL BACK SOON POSSIBLE.
[2020-11-13 08:58] LABS: CHOL - HDL RATIO 4.9 ratio (2.3-4.1); LDL-HDL RATIO 2.2 ratio (1.5-3.5)
--- NOTE | 2020-11-13 10:16 | HP ---
PATIENT: THEO FATIMA MEDICAL RECORD: [id number] ACCOUNT: [id number] LOCATION:[address] : 51 ADMISSION DATE: 11/12/20 PCP: CATARINA MCKINNEY MD HISTORY AND PHYSICAL EXAMINATION CHIEF COMPLAINT: Chest pain. HISTORY OF PRESENT ILLNESS: This is a 65-year-old female followed by Dr. Catarina Mckinney who has been having chest pain off and on over the last 5 days. She would take nitroglycerin and it would relieve her pain and then the pain returned. Pain is mostly in the left chest, but up into her jaw and left shoulder. She had a little shortness of breath. She had no diaphoresis, no nausea, no vomiting. Because it persisted, she decided to come in and get it checked. She does have a history of heart disease. Dr. Giang is her director of fundraising. She has had 6 stents placed. The last was in 08/2018. In the ER, troponin initially was 0.017 and the second troponin was 0.031. She was admitted and cardiology has been consulted. PAST MEDICAL HISTORY: Type 2 diabetes, epilepsy for many years. Last seizure was september. She has had breast cancer, hypertension, hyperlipidemia, COPD, reflux, and osteoarthritis. PAST SURGICAL HISTORY: She had a lumpectomy initially for breast cancer found on the right breast and then she had cancer found in the left breast. She has since undergone bilateral mastectomies. She now has a continued chronic open wound on the right side of her chest that is being treated. She has had a tonsillectomy and a cholecystectomy as well as the coronary stents mentioned above. ALLERGIES: SHE DOES NOT TOLERATE PIOGLITAZONE OR BACTRIM OR PREDNISONE. SHE DOES NOT TOLERATE STATINS. HOME MEDICATIONS: Nitroglycerin p.r.n. chest pain, albuterol HFA p.r.n. wheeze, Protonix 40 mg once a day, meloxicam p.r.n. arthritis, lisinopril 10 mg twice a day, Dilantin Ex 100. She takes 2 pills twice a day, metformin 500 mg twice a day, glimepiride 4 mg once a day, aspirin 81 mg once a day. SOCIAL HISTORY: She is . She is retired. FAMILY HISTORY: Father at 65. He had COPD. Mother at 71. She had heart disease and a seizure disorder as well. The patient had a cousin who of breast cancer. HABITS: Former smoker. No alcohol or drugs. REVIEW OF SYSTEMS: GENERAL: No major weight changes. HEENT: No particular sinus or allergy problems. RESPIRATORY: Has a history of COPD. She is a former smoker and uses albuterol HFA p.r.n. CARDIAC: See above history. She sees Dr. Giang for her heart. GASTROINTESTINAL: She has had some reflux problems and takes a PPI. GENITOURINARY: No significant problems there. MUSCULOSKELETAL: She has osteoarthritis and takes meloxicam for that. NEUROLOGIC: Has a history of seizure disorder. The last one was close to 30 HISTORY AND PHYSICAL [id number] THEO FATIMA years ago. PSYCHIATRIC: Denies depression or melancholia. PHYSICAL EXAMINATION: VITAL SIGNS: Temperature 98.4, pulse 71, respirations 18, blood pressure 134/51. GENERAL: She is awake and alert. She does not appear to be in acute distress. SKIN: Warm and dry. HEENT: Grossly within normal limits. NECK: Supple. No JVD or bruit. HEART: Regular rate and rhythm. LUNGS: Clear. ABDOMEN: Soft, flat, nontender. EXTREMITIES: No edema. NEUROLOGIC: Unremarkable. LABORATORY DATA: CK 67, CK-MB is 3.0. Troponin initially was 0.017 and it went up to 0.031. INR is 1.13. CBC with a white count of 9800, hemoglobin 9.8, hematocrit 30.8. Basic metabolic panel: Sodium 139, potassium 4.4, chloride 104, CO2 of 27.7, BUN 15, creatinine 1.0, glucose 155, calcium 9.3. Liver functions are all normal. Magnesium 2.0. Chest x-ray shows no acute abnormality. IMPRESSION: 1. Acute myocardial infarction with elevated troponin. 2. History of coronary artery disease. 3. History of diabetes. 4. History of hypertension. 5. History of breast cancer. PLAN: She is admitted. Cardiology is consulted. Further tests or procedures as warranted by cardiology. TRANSINT:[id number] Voice Confirmation ID: [id number] DOCUMENT ID: [id number] RAS AVILA MD at 1016 CC: [id number] DICTATION DATE: 11/12/202012 BODY WORKER: 11/12/20 2307 ADM IN [address] [place] [address]
--- NOTE | 2020-11-13 10:32 | NUR ---
PT ARRIVED BY STRETCHER. HOLDING FOR AN ICU BED. ASSESSMENT COMPLETED. CALL LIGHT WITHIN REACH. DENIES NAUSEA. IS COMPLAINING OF ITCHING. NO RASH NOTED. PT WAS GIVEN DOSE OF MORPHINE IN ER AND THIS IS LISTED AN ALLERGY FOR HER.
--- NOTE | 2020-11-13 10:45 | NUR ---
RIGHT GROIN DRESSING C/D/I. NO S/S OF HEMATOMA NOTED. SHEATH INTACT. PT DENIES NAUSES. TOLERATING SIPS OF WATER. DENIES PAIN. RIGHT PEDAL PULSE PALPABLE.
--- NOTE | 2020-11-13 11:00 | NUR ---
RIGHT GROIN SHEATH IN PLACE. NO BLEEDING/HEMATOMA NOTED. RIGHT PEDAL PULSE PALPABLE. VSS. RIGHT LEG PINK AND WARM TO TOUCH. CALL LIGHT WITHIN REACH. PT DENIES NAUSEA/PAIN.
--- NOTE | 2020-11-13 11:15 | NUR ---
RIGHT GROIN SHEATH IN PLACE. NO BLEEDING/HEMATOMA NOTED. RIGHT PEDAL PULSE PALPABLE. VSS AT THIS TIME.
--- NOTE | 2020-11-13 12:23 | NUR ---
PT REPORTS SHE NEEDS TO URINATE. RIGHT GROIN SHEATH IN PLACE. NO BLEEDING/HEMATOMA NOTED. RIGHT PEDAL PULSE PALPABLE. PUREWICK PLACED FOR PT COMFORT AND PT PLACED ON PAD. WILL MONITOR URINE OUTPUT. VSS AT THIS TIME.
--- NOTE | 2020-11-13 12:55 | NUR ---
PT UNABLE TO VOID WITH PUREWICK. ORDERS RECEIVED FOR IN AND OUT CATH. THIS WAS PERFORMED. 350cc OF CLEAR YELLOW URINE NOTED. DENNISE-CARE GIVEN AND IN AND OUT CATH REMOVED. TOLERATED WELL. RIGHT GROIN DRESSING C/D/I. NO S/S OF HEMATOMA NOTED. SHEATH STILL IN PLACE.
--- NOTE | 2020-11-13 13:00 | NUR ---
DR. ARTEAGA AT BEDSIDE AND SPOKE WITH PT. RIGHT WOUND DRESSING REMOVED PER SURGEON REQUEST. REPLACED WITH CLEAN WET TO DRY DRESSING.
--- NOTE | 2020-11-13 13:15 | NUR ---
DR. MEDRANO CONSULT CALLED TO HIS OFFICE. SPOKE WITH HOPE. SHE REPORTS SHE WILL TEXT HIM AND LET HIM KNOW THAT HE NEEDS TO SEE PT.
--- NOTE | 2020-11-13 13:33 | NUR ---
ANESTHESIA AT BEDSIDE.
--- NOTE | 2020-11-13 14:00 | NUR ---
ULTRASOUND AT BEDSIDE FOR CAROTID DOPPLERS. 20G PIV STARTED TO RIGHT WRIST. SL AT THIS TIME.
[2020-11-13] MEDS ORDERED: NITROQUICK0.4 MG SL (14:47)
[2020-11-13] MEDS ORDERED: ACETAMINOPHEN500 M1 PO (14:55)
[2020-11-13] MEDS ORDERED: ALBUTEROL SULF8.5 GM INH (14:56)
--- NOTE | 2020-11-13 15:24 | NUR ---
RIGHT GROIN DRESSING C/D/I. NO S/S OF HEMATOMA NOTED. SHEATH IN PLACE. HEPARIN STILL INFUSING TO LEFT FA PIV AT 900 UNITS/HR. ORDERS FOR PTT TO BE DRAWN AT 16:30.
--- NOTE | 2020-11-13 15:32 | NUR ---
BLEACHER PULP AT BEDSIDE TO PLANE TABLEMAN PT TO PLACE IABP.
--- NOTE | 2020-11-13 16:00 | NUR ---
REPORT GIVEN TO LAURIE POLLARD. PT STILL IN LIVING MANAGER FOR IABP. LIVING MANAGER GIVEN LAB SLIP TO DRAW PTT DURING PROCEDURE.
[2020-11-13 16:45] LABS: INR 1.19 (0.85-1.17)
[2020-11-13 16:46] LABS: APTT 67.5 SECONDS (22.8-39.4)
[2020-11-13 18:12] LABS: BASOPHILS 1.1 % (0-2); EOSINOPHILS 3.9 % (0-7); HEMATOCRIT 28.3 % (36.0-48.0); LYMPHOCYTES 16.1 % (15-50); MCH 25.6 pg (26.0-34.0); MCHC 31.8 g/dL (31.0-37.0); MCV 80.6 fL (80.0-100.0); MEAN PLATELET VOLUME 8.1 fL (7.4-10.4); MONOCYTES 9.8 % (2-11); NEUTROPHILS 69.1 % (40-80); PLATELET COUNT 440 10x3/uL (130-400); RBC 3.52 10x6/uL (4.00-5.40); RDW 15.7 % (11.5-14.5); WBC 9.7 10x3/uL (4.8-10.8)
[2020-11-13 18:29] LABS: ALBUMIN 2.7 g/dL (3.4-5.0); ALKALINE PHOSPHATASE 116 U/L (30-120); ALT (SGPT) 21 U/L (10-68); BILIRUBIN - TOTAL 0.18 mg/dL (0.2-1.3); CALC OSMOLALITY 282 mosm/kg (275-300); CALCIUM 8.1 mg/dL (8.5-10.1); CHLORIDE - SERUM 109 mmol/L (98-107); CHOLESTEROL, TOTAL 188 mg/dL (0-200); CREATININE - SERUM 0.7 mg/dL (0.6-1.3); PHOSPHOROUS 3.4 mg/dL (2.5-4.9); POTASSIUM - SERUM 3.8 mmol/L (3.5-5.1); PRO BNP 948 pg/mL (0-125); PROTEIN - SERUM 6.4 g/dL (6.4-8.2); SODIUM 142 mmol/L (136-145); T4 THYROXIN - FREE 0.89 ng/dL (0.76-1.46); THYROID STIMULATING HORMONE 1.55 uIU/mL (0.36-3.74); UREA NITROGEN 12 mg/dL (7-18); URIC ACID 5.8 mg/dL (2.6-7.2); eGFR NON AFRICAN AMERICAN 88 mL/min (90-120)
[2020-11-13 18:32] LABS: GLUCOSE 96 mg/dL (74-106)
[2020-11-13 18:41] LABS: PLT FUNCT.(P2Y12) PLAVIX 317 PRU (194-418)
--- NOTE | 2020-11-13 18:46 | NUR ---
1700- RECIEVED OT FROM COMPUTER NETWORK SPECIALIST. VSS. BALLOON PUMP IN PLACE. WILL CONTINUE TO MONITOR
[2020-11-13 22:51] LABS: BILIRUBIN NEGATIVE (NEGATIVE); KETONE NEGATIVE mg/dL (< 1+); NITRITE NEGATIVE (NEGATIVE); UROBILINOGEN NORMAL mg/dL (< 2)
[2020-11-14] VITALS (40 sets, daily range): BP systolic 100–155; BP diastolic 30–57
--- NOTE | 2020-11-14 04:15 | NUR ---
Shift summary: Patient prepped for surgery as ordered with antimicrobial wash, hair clipped. IAPB at right groin intact. Dressing changed to R chest mastectomy site, wet-to-dry with NS, covered with sterile 4x4 and bordered gauze. DP and PT pulses verified by doppler and marked. Interventions explained to patient, tolerated well. Plan of care discussed.
--- NOTE | 2020-11-14 06:29 | NUR ---
Patient left unit with surgical team via hospital bed. Alert, all lines intact. Plan of care discussed, verbalized understanding. Consents and chart with patient.
--- NOTE | 2020-11-14 07:00 | NUR ---
PATIENT IN OR, RECEIVED REPORT FROM NIGHT RN.
--- NOTE | 2020-11-14 08:08 | NUR ---
CVL AND ARTERIAL LINE PLACED BY ANESTHESIA, SCD AND STOCKING LEFT LEG POST OP WITH RIGHT WRAPPED. PATIENT HAS OPEN RIGHT BREAST WOUND, POST MASTECTOMY SITE, PACKING LEFT IN AND COVERED WITH TEGADERM BEFORE PREP, ELIZABETH.
--- NOTE | 2020-11-14 13:05 | NUR ---
RECEIVED PATIENT FROM OR VIA BED, PATIENT OPENING EYES AND FOLLOWING COMMANDS, DR. ARTEAGA ORDERS PARALYTIC GIVEN PER ANESTHESIA. ART LINE LEFT WRIST AND CVP TO RIGHT IJ, LEVLED AND ZEROED. 20 GA TO RIGHT WRIST NOTED, NSL. CHEST TUBE SUBSTERNAL X 2, Y'D TOGETHER TO OASIS CHEST DRAIN, NO AIR LEAK NOTED TO WALL SUCTION, WITH BLOODY OUTPUT NOTED. RADHA DRAIN SUBSTERNAL, COMPRESSED NO OUTPUT NOTED, DRESSING C/D/I, MIDSTERNAL INCISION, SHAHNAZ WELL APPROXIMATED. DRESSING TO MASECTOMY WOUND TO RIGHT BREAST, C/D/I. RIGHT GROIN INSERTION SITE FOR IABP 1:1, GROIN SITE INTACT, NO HEMATOMA NOTED, DRESSING C/D/I. DISTAL DP PULSES +1, WEAK, RIGHT RADIAL PULSE +1 WEAK AND LEFT ART LINE IN PLACE, DRESSING C/D/I. TPM RATE OF 80 ON, UNDERLYING RHYTHM IS COMPLETE HEAR BLOCK. ETT 7.5, 22 CM AT TEETH, SECURED, VENT SIMV 16, TV 400, PEEP 5, FIO2 40% WITH SPO2 - 98%. FSBS - 152. LABS DRAWN AND SENT TO LAB. XRAY CALLED FOR CHEST XRAY. PLASMOLYTE INFUSING AT 100 ML/HR AND DOPAMINE AT 2 MCG/KG/MIN (4.4 ML/HR). BBS - CLEAR BUT DIMINISHED. RIGHT LEG HARVEST SITE WITH COBAN TO RIGHT LEG INTACT. RODNEY HOSE AND SCD PLACED TO LEFT LEG. HEAD TO TOE ASSESSMENT COMPLETED.
[2020-11-14 13:30] LABS: BASOPHILS 0.2 % (0-2); EOSINOPHILS 0.4 % (0-7); HEMATOCRIT 30.2 % (36.0-48.0); HEMOGLOBIN 9.9 g/dL (12-16); LYMPHOCYTES 2.6 % (15-50); MCH 27.8 pg (26.0-34.0); MCHC 32.9 g/dL (31.0-37.0); MEAN PLATELET VOLUME 7.6 fL (7.4-10.4); MONOCYTES 6.4 % (2-11); NEUTROPHILS 90.4 % (40-80); RBC 3.56 10x6/uL (4.00-5.40); RDW 16.2 % (11.5-14.5)
[2020-11-14 13:37] LABS: INR 1.38 (0.85-1.17); PROTIME 15.7 SECONDS (11.6-15.0)
[2020-11-14 13:39] LABS: APTT 34.2 SECONDS (22.8-39.4)
[2020-11-14 13:40] LABS: ANION GAP 11.4 mmol/L (8-16); BILIRUBIN - TOTAL 1.28 mg/dL (0.2-1.3); CARBON DIOXIDE 28.4 mmol/L (21.0-32.0); MCV 84.7 fL (80.0-100.0); PLATELET COUNT 251 10x3/uL (130-400); POTASSIUM - SERUM 3.8 mmol/L (3.5-5.1); PROTEIN - SERUM 5.5 g/dL (6.4-8.2); WBC 16.6 10x3/uL (4.8-10.8)
[2020-11-14 13:41] LABS: CREATININE - SERUM 0.9 mg/dL (0.6-1.3)
--- NOTE | 2020-11-14 14:43 | NUR ---
PATIENT OPENING EYES AND MOVING ALL EXTREMITIES ON COMMAND.
--- NOTE | 2020-11-14 15:00 | NUR ---
REASSESSMENT COMLETED. VSS.
--- NOTE | 2020-11-14 16:04 | NUR ---
PAGED DR. BOURGEOIS REGARDING SEDATION ORDERS FOR PATIENT. UPDATED AND RECEIVED ORDERS FOR PROPOFOL GTT AND FENTANYL GTT TO KEEP BETWEEN 25 MCG/HR AND 75 MCG/HR.
--- NOTE | 2020-11-14 16:04 | NUR ---
SPOKE TO LALO SULLIVAN WITH DR. ARTEAGA, NOTIFIED THAT PATIENT MOVING ALL EXTREMITIES AND FOLLOWING COMMANDS. STATES TO CONTACT DR. BOURGEOIS FOR SEDATION ORDERS FOR VENT.
--- NOTE | 2020-11-14 16:35 | NUR ---
DR. BOURGEOIS AT ROOM UPDATED AND EXAMINES PATIENT. OBTAINS HISTORY FROM PATIENTS SISTER WHO IS AT BEDSIDE.
--- NOTE | 2020-11-14 17:05 | NUR ---
DR. ARTEAGA AT ROOM UPDATED AND EXAMINES PATIENT. TPM TURNED OFF AT PRESENT, HR 78, SR.
--- NOTE | 2020-11-14 17:28 | NUR ---
DR. PETE OFFICE CALLED TO PAGE REGARDING PATIENT REMAINING INTUBATED OVERNIGHT WITH HISTORY OF SEIZURES AND LAST PO DOSE WAS LAST NIGHT AT 2100.
--- NOTE | 2020-11-14 18:22 | NUR ---
DR. ARTEAGA AT ROOM UPDATED AND EXAMINES PATIENT. PATIENTS HR IN 60'S WITH TPM OFF, TURNED TPM OFF AT RATE OF 80, ATRIAL PACED, VENTRICAL PACE TURNED OFF PRESENTLY.
--- NOTE | 2020-11-14 21:17 | NUR ---
Confirmed 2000 draw for K result is 3.8 per Tia in Lab.
[2020-11-15] VITALS (95 sets, daily range): BP systolic 103–148; BP diastolic 31–99; Ht 157.5 cm; Wt 61.8 kg
[2020-11-15 05:54] LABS: HEMATOCRIT 30.2 % (36.0-48.0); HEMOGLOBIN 9.8 g/dL (12-16); MCH 27.9 pg (26.0-34.0); MCHC 32.4 g/dL (31.0-37.0); MCV 85.9 fL (80.0-100.0); RBC 3.52 10x6/uL (4.00-5.40); RDW 16.4 % (11.5-14.5); WBC 15.2 10x3/uL (4.8-10.8)
[2020-11-15 06:19] LABS: ALBUMIN 2.6 g/dL (3.4-5.0); ANION GAP 13.6 mmol/L (8-16); BILIRUBIN - TOTAL 0.54 mg/dL (0.2-1.3); CALCIUM 7.9 mg/dL (8.5-10.1); CARBON DIOXIDE 24.1 mmol/L (21.0-32.0); CREATININE - SERUM 0.9 mg/dL (0.6-1.3); POTASSIUM - SERUM 3.7 mmol/L (3.5-5.1); PROTEIN - SERUM 5.4 g/dL (6.4-8.2)
--- NOTE | 2020-11-15 06:44 | NUR ---
Shift summary: Patient sedated, arousable to voice, follows commands, gestures to express needs. Dressing changed to substernal chest tube and IABP sites, sutures intact, chest tube site swabbed with betadine, covered with sterile 4x4 and transparent dressing, with biodisc applied to pacing wire site. No sign of infection. Biodisc, sterile 4x4 and transparent dressing applied to IABP site at R femoral. Dressing changed at right breast, wet-to-dry with transparent dressing. Peripheral pulses intact. EKG completed; atrial paced LBBB on pacer and NSR LBBB rate of 68 off of pacer. Hardcopies placed in chart. See flowsheets for details.
--- NOTE | 2020-11-15 09:59 | NUR ---
APPROX 0915 DR ARTEAGA IN ROOM TO DC IABP, AFTER DC PREVIOUSLY DOPPLERED PULSES IN RLE UNABLE TO DOPPLER, 2000 HEPARIN ADMINISTERED, PULSES CONTINUE TO BE UNABLE TO BE DOPPLERED, WILL GO TO OR PER DR ARTEAGA, SISTER TELEPHONED FOR CONSENT
--- NOTE | 2020-11-15 10:56 | NUR ---
PT TO OR WITH OR TEAM
--- NOTE | 2020-11-15 11:56 | NUR ---
PATIENT CAME INTUBATED, TWORLEY.
--- NOTE | 2020-11-15 12:57 | NUR ---
PT BACK FROM OR ARACELI 1256. PLACED BACK ON VENT BY ANESTHESIA.
--- NOTE | 2020-11-15 13:01 | OP ---
PATIENT NAME: THEO FATIMA MEDICAL RECORD: [id number] :51 LOCATION:D.CVI [id number] ADMISSION DATE:11/13/20 SURGEON: VIJAY ARTEAGA MD DATE OF OPERATION: 11/14/2020 SURGEON: Vijay Arteaga MD PROCEDURE PERFORMED: 1. Coronary artery bypass graft times 4 (left internal mammary artery to LAD, reverse saphenous vein graft from aorta to obtuse marginal, from the side of that vein graft to the first diagonal, and from aorta to posterior descending artery. 2. Endoscopic saphenous vein harvest. PREOPERATIVE DIAGNOSES: Coronary artery disease with acute coronary syndrome, intraaortic balloon pump in place, severe peripheral vascular disease with left iliac stenosis. POSTOPERATIVE DIAGNOSES: Coronary artery disease with acute coronary syndrome, intraaortic balloon pump in place, severe peripheral vascular disease with left iliac stenosis. ANESTHESIA: General endotracheal anesthesia. ESTIMATED BLOOD LOSS: Total cardiopulmonary bypass with Cell Saver retransfusion, 3 packed red blood cells, 2 FFP, 1 platelets. COMPLICATIONS: None. SPECIMENS: None. CONDITION: Stable. OPERATIVE FINDINGS: Calcified plaque at the base of the innominate. INDICATION: The patient with a right mastectomy wound open admitted with acute coronary syndrome, history of multiple coronary stents, now with severe progressive right stenosis, occluded circumflex stent and 90+% left main equivalent. PROCEDURE IN DETAIL: The patient was brought to the operative suite, general anesthesia was obtained, the patient was prepped and draped. Greater saphenous vein harvested endoscopically from the right lower extremity, side branch divided with electrocautery. The vessels ligated proximally and distally and removed. The side branches were tied. Thin sites were oversewn. Smaller caliber resection of the lower leg was the portion used for the diagonal graft. Median sternotomy incision was made. Subcutaneous tissue divided with electrocautery. Sternum was divided with a saw. The left hemisternum was elevated. The left pleural cavity was entered. Left internal mammary artery and vein was taken down as a pedicle graft. Sternal retractor was placed. Pericardium was opened. Heparin was given. Aorta was cannulated. Dual stage venous cannula was inserted. OPERATIVE REPORT [id number] THEO FATIMA Retrograde cardioplegia cannula was inserted. The internal mammary was clipped distally and made ready for anastomosis. The patient was placed on cardiopulmonary bypass. Sites for distal anastomoses were selected. Antegrade cardioplegic cannula was inserted. The patient's temperature was cooled. Crossclamp was placed. Cardioplegia given antegrade and retrograde and this was repeated at 15-20 minute intervals during the crossclamp time. Distal anastomosis was performed in standard technique. Proximal anastomosis with single cross-clamp technique and a 3.5 punch for the right graft, 4.0 for the left graft, single vein-to vein was performed after removal of the cross clamp and deairing the aortic root. The flow was restored, but the patient was AV paced, off cardiopulmonary bypass, fully rewarmed, weaned from cardiopulmonary bypass and was stable. The patient was decannulated. Cannulation sites were oversewn. Protamine was given. Thorough irrigation was undertaken. Hemostasis was assured. The graft lay appropriately. Left chest was evacuated and irrigated. The tip of the chest tube was placed in the right chest. The right chest was open due to moderately hyperexpanded lungs. The internal mammary harvest site inspected for bleeding. Sternum was closed with wires. Fascia was closed. Subcutaneous tissue was closed. Skin was closed. Dermabond was placed. The needle and sponge counts were reported as correct and the patient was taken to the ICU in stable condition. TRANSINT:[id number] Voice Confirmation ID: [id number] DOCUMENT ID: [id number] VIJAY ARTEAGA MD at 1301 CC: CATARINA MCKINNEY and HEIRBERTO BALDWIN MD [id number] DICTATION DATE: 11/14/201816 RETAIL ANALYST: 11/14/202026 ADM IN [facility] [address] [id number]
--- NOTE | 2020-11-15 13:15 | NUR ---
1300 PT RETURNED TO ROOM, R GROIN SITE SOFT TO PALPATE, PULSES EASILY DOPPLERED
[2020-11-15 13:55] LABS: INR 1.47 (0.85-1.17); PROTIME 16.6 SECONDS (11.6-15.0)
--- NOTE | 2020-11-15 14:25 | NUR ---
CHANGED PATIENT TO SIMV WITH A RATE OF 12. PT BREATHING 20 ON HER OWN. VITAL SIGNS STABLE. PT LOOKS COMFORTABLE.
[2020-11-15 14:26] LABS: APTT 176.7 SECONDS (22.8-39.4)
--- NOTE | 2020-11-15 14:44 | NUR ---
DECREASED RESP. RATE TO 8. PT IS TOLERATING WELL BREATHING 22 BREATHS PER MINUITE ON HER OWN. VITAL SIGNS STABLE.
--- NOTE | 2020-11-15 15:13 | NUR ---
SBT STARTED AT 151
--- NOTE | 2020-11-15 16:38 | NUR ---
[facility]GS NIF AND VITAL CALLED TO DR ARTEAGA, ORDERS FOR ONE AMP BICARB AND CALL DR BOURGEOIS, RT TO NOTIFY DR BOURGEOIS OF ABGS
--- NOTE | 2020-11-15 16:41 | OP ---
PATIENT NAME: THEO FATIMA MEDICAL RECORD: [id number] :51 LOCATION:D.CVI D.CV04 ADMISSION DATE:11/13/20 SURGEON: LAUREN ARTEAGA MD DATE OF OPERATION: 11/15/2020 SURGEON: Lauren Arteaga MD PROCEDURE PERFORMED: Right femoral thrombectomy. PREOPERATIVE DIAGNOSES: Acute coronary syndrome, coronary artery disease, right femoral intraaortic balloon pump. POSTOPERATIVE DIAGNOSIS: Right femoral thrombosis. BLOOD LOSS: 25 mL. SPECIMENS: Thrombus. ANESTHESIA: General endotracheal anesthesia. COMPLICATIONS: None. CONDITION: Stable. DISPOSITION: CV ICU. OPERATIVE FINDINGS: Discrete, less than 1 cm fairly fresh thrombus at the balloon insertion site in the distal right common femoral artery, removed under direct visualization and a thrombectomy of the superficial femoral returned a small amount of clot, profunda was without clot and inflow was without clot. Heparinization during the procedure was not reversed. Doppler right pedal pulses on return to ICU indication is loss of Doppler pulses to right lower extremity after percutaneous removal of intraaortic balloon pump one day status post coronary artery bypass graft. DESCRIPTION OF PROCEDURE: The patient was brought emergently to the operating suite. The oblique incision in the inguinal crease on the right was made, taken down through subcutaneous tissue. Vein branches divided with clips. Common femoral and distal external iliac artery were dissected out and encircled with a vessel loop. There was good strong palpable pulse at this location that ceased distally just at the distal common femoral at the insertion site of the intraaortic balloon. The superficial and profunda femoral encircled with vessel loops. Additional heparin was given. The longitudinal arteriotomy was made. Small amount of thrombus was removed. Profunda had good back flow. Thrombectomy revealed no clot. It was flushed with heparinized saline. Then, in the superficial femoral passed 70 cm with return of a small amount of clot, second pass without any clot, flushed with heparinized saline, inflow was flushed and a femoral thrombectomy to 30 cm without return of clot. Arteriotomy was closed. Flow restored, first to the profunda and superficial femoral. Good Doppler pedal pulses. Wound was made hemostatic. Thorough antibiotic irrigation, closed in 3 layers and the patient to ICU stable. TRANSINT:[id number] Voice Confirmation ID: [id number] DOCUMENT ID: [id number] OPERATIVE REPORT [id number] THEO FATIMA, LAUREN Tovar MD at 1641 CC: CRIS MEDINA M.D. [id number] DICTATION DATE: 11/15/20 1313 BIOMEDICAL ANALYTICAL SCIENTIST: 11/15/20 1401 ADM IN [facility] [address] [id number]
--- NOTE | 2020-11-15 17:02 | NUR ---
WHEN PT OUT OF OR REDNESS NOTED TO L OUTER EYE, DR ARTEAGA NOTIFIED, PT SEEN BY DR ADEN AT THIS TIME PER DR ARTEAGA WILL RECHECK ABGS AFTER ONE HOUR, WILL NOT WEAN VENT PER DR BOURGEOIS, DR ARTEAGA AWARE, WILL TREAT CALCIUM AFTER EXISTING ORDERS FOR K INFUSED PER DR RATEAGA, DR ARTEAGA NOTIFIED OF LOW UOP .
--- NOTE | 2020-11-15 18:02 | NUR ---
1720 PT BP DROPPED INTO 70S, PATRICIA INITIATED, BP RETURNED WNL, DR ARTEAGA NOTIFIED, SPO2 THEN BEGAN DROPPING, RT AT BEDSIDE AND PT PLACED ON AMBUBAG, SPO2 RETURNED TO NORMAL AND RETURNED TO VENT, DR ARTEAGA NOTIFIED AND STATED TO NOTIFY DR BOURGEOIS, DR BOURGEOIS PAGESaravanan, PROPOFOL TITRATED TO CAMRON SCALE, DR ARTEAGA IN UNIT AT THIS TIME, CALCIUM ADMINISTERED.
--- NOTE | 2020-11-15 18:58 | NUR ---
SELVIN CALLED TO DR ARTEAGA, NO NEW ORDERS
--- NOTE | 2020-11-15 20:32 | NUR ---
DECREASED FIO2 TO 50% POST ABGS
[2020-11-16] VITALS (97 sets, daily range): BP systolic 100–146; BP diastolic 36–57
[2020-11-16 04:52] LABS: HEMATOCRIT 28.7 % (36.0-48.0); HEMOGLOBIN 9.3 g/dL (12-16); MCHC 32.3 g/dL (31.0-37.0); MCV 86.9 fL (80.0-100.0); MEAN PLATELET VOLUME 8.3 fL (7.4-10.4); RBC 3.31 10x6/uL (4.00-5.40); RDW 16.2 % (11.5-14.5); WBC 15.7 10x3/uL (4.8-10.8)
[2020-11-16 05:20] LABS: ALBUMIN 2.1 g/dL (3.4-5.0); ALKALINE PHOSPHATASE 70 U/L (30-120); ALT (SGPT) 18 U/L (10-68); CALCIUM 8.5 mg/dL (8.5-10.1); CARBON DIOXIDE 26.9 mmol/L (21.0-32.0); CHLORIDE - SERUM 114 mmol/L (98-107); CREATININE - SERUM 0.7 mg/dL (0.6-1.3); GLUCOSE 165 mg/dL (74-106); PROTEIN - SERUM 5.2 g/dL (6.4-8.2); SODIUM 148 mmol/L (136-145); eGFR NON AFRICAN AMERICAN 88 mL/min (90-120)
[2020-11-16 05:21] LABS: CALC OSMOLALITY 297 mosm/kg (275-300); UREA NITROGEN 12 mg/dL (7-18)
--- NOTE | 2020-11-16 08:29 | TEE ---
PATIENT:THEO FATIMA MEDICAL RECORD: [id number] LOCATION:[place] [address] AGE OF PATIENT: 65 ADMISSION DATE: 11/13/20 SEX: F REFERRING PHYSICIAN: INTERPRETING PHYSICIAN: HERIBERTO BALDWIN MD TRANSESOPHAGEAL ECHOCARDIOGRAM Date: 11/14/20 IRWIN CHARGE Y INDICATIONS: CABG PREMEDICATIONS: PATIENT'S RESPONSE PROCEDURE DOPPLER MEASUREMENTS: LVIT LA PA RA LVOT RVOT Asc. Ao AV Gradient Peak AV Mean AV Area MV Gradient Peak MV Mean MV Area INTERPRETATION: Doppler: 2-D: COLOR FLOW DOPPLER NORMAL SALINE STUDY: MISCELLANOUS: DIAGNOSIS: PLAN: Student Support Services Director:3 Dr. Giang Recreation Attendant Supervisor: Melany MARI COMMENTS: DATE OF SERVICE: 11/15/2020 PROCEDURE: Intraoperative IRWIN FINDINGS: Preoperative shows normal LV wall motion, normal wall thickening. EF is greater than or equal to 55%. Aortic valve is tricuspid with good valve excursion. Trivial AI. Left atrium is normal. Mitral valve appears normal. Trivial MR. Postoperatively, good wall motion, normal wall thickening in all segments and normal EF 55%. Aortic valve is tricuspid with good valve TRANSESOPHAGEAL ECHOCARDIOGRAM REPORT [id number] THEO FATIMA excursion. Trivial AI. Left atrium appears normal. Mitral valve appears normal. Trivial MR. TRANSINT:[id number] Voice Confirmation ID: [id number] DOCUMENT ID: [id number] at 0829 CC: [id number] DICTATION DATE: 11/15/20929 ENERGY SPECIALIST: 11/15/20 1000 ADM [id number] [place] [address]
--- NOTE | 2020-11-16 08:29 | OP ---
PATIENT NAME: LISA FATIMA MEDICAL RECORD: [id number] :51 LOCATION:D.CVI D.CV04 ADMISSION DATE:11/13/20 SURGEON: HERIBERTO BALDWIN MD DATE OF OPERATION: 11/13/2020 PROCEDURE: Intraaortic balloon pump placement. INDICATION: Preop high risk anatomy. DESCRIPTION OF PROCEDURE: After the right femoral artery was cannulated via the modified Seldinger technique, under fluoroscopic guidance, the intraaortic balloon pump was placed through the right iliac into the descending aorta at the level of the jean paul. The ileum and pressure tubing were both attached to the motor and inflation was begun at 1:1 with excellent augmentation. IMPRESSION: Successful intraaortic balloon pump placement on Lisa Fatima. COMPLICATIONS: None. ESTIMATED BLOOD LOSS: Minimal. DISPOSITION: To the CV ICU, stable on heparin drip in anticipation of surgery in the near future. TRANSINT:[id number] Voice Confirmation ID: [id number] DOCUMENT ID: [id number] HERIBERTO BALDWIN MD at 0829 CC: [id number] DICTATION DATE: 11/13/20 1642 CHIEF DEPUTY CLERK/BAILIFF: 11/14/20 0023 ADM IN [facility] [address] [place] [address]
--- NOTE | 2020-11-16 10:10 | NUR ---
SBT STARTED 09/20 @40%. PTS VITAL SIGNS ARE STABLE. PT LOOKS COMFORTABLE AND FOLLOWING COMMANDS
--- NOTE | 2020-11-16 10:51 | NUR ---
Nutrition Follow-up: POD 1 R fem thrombectomy, POD 2 CABG. Intubated/sedated. Diprivan @ 9.3 mL/hr; provides 246 kcal/day. Discussed in IDT rounds; possible extubation. Diet: NPO Wt: 136.6# (11/16); 130# (11/14) Labs noted: Na 148, Glu 165, Alb 2.1 Meds noted: Diprivan, Protonix, Humulin -If pt is not extubated, rec initiate TF if medically feasible; rec Vital 1.2 @ goal rate of 40 mL/hr. -Monitor wt. -RD will follow up within 4 days.
--- NOTE | 2020-11-16 11:23 | NUR ---
[facility]GS CALLED TO DR ARTEAGA AND DIMITRIOS BOURGEOIS TO EXTUBATE, RT NOTIFIED
--- NOTE | 2020-11-16 12:19 | NUR ---
EXTUBATED TO BIPAP AND RESTRAINTS REMOVED 1207
--- NOTE | 2020-11-16 12:37 | NUR ---
1238 DC'D RT PERIPHERAL IV
--- NOTE | 2020-11-16 13:26 | NUR ---
DURING CPAP TRIAL SEDATION TURNED OFF
--- NOTE | 2020-11-16 15:56 | NUR ---
PT NOW ON 6L NASAL CANNULA. PTS VITAL SIGNS STABLE. TOLERATING BREAK FROM BIPAP WELL.
--- NOTE | 2020-11-16 18:24 | NUR ---
DC'D A-LINE & DANGLED PER DR ARTEAGA
--- NOTE | 2020-11-16 18:43 | NUR ---
CHESTTUBE TO WATER SEAL
[2020-11-17] VITALS (70 sets, daily range): BP systolic 100–163; BP diastolic 47–107
[2020-11-17 04:49] LABS: HEMATOCRIT 27.6 % (36.0-48.0); MCH 28.3 pg (26.0-34.0); MCHC 32.4 g/dL (31.0-37.0); MCV 87.4 fL (80.0-100.0); MEAN PLATELET VOLUME 8.1 fL (7.4-10.4); RBC 3.16 10x6/uL (4.00-5.40); RDW 16.4 % (11.5-14.5)
[2020-11-17 05:01] LABS: ALKALINE PHOSPHATASE 78 U/L (30-120); ALT (SGPT) 14 U/L (10-68); BILIRUBIN - TOTAL 0.35 mg/dL (0.2-1.3); CALC OSMOLALITY 295 mosm/kg (275-300); CHLORIDE - SERUM 113 mmol/L (98-107); CREATININE - SERUM 0.7 mg/dL (0.6-1.3); GLUCOSE 138 mg/dL (74-106); POTASSIUM - SERUM 3.5 mmol/L (3.5-5.1); PROTEIN - SERUM 5.6 g/dL (6.4-8.2); SODIUM 148 mmol/L (136-145); UREA NITROGEN 12 mg/dL (7-18); eGFR NON AFRICAN AMERICAN 88 mL/min (90-120)
--- NOTE | 2020-11-17 11:04 | NUR ---
1020: DR. ARTEAGA HERE. MEDISTINAL CHEST TUBES DC'D. TPM WIRES DISCONNECTED. SITE DRESSED WITH 4X4 AND TEGADERM.
[2020-11-18] VITALS (22 sets, daily range): BP systolic 104–161; BP diastolic 43–62
[2020-11-18 04:34] LABS: HEMATOCRIT 28.5 % (36.0-48.0); HEMOGLOBIN 9.2 g/dL (12-16); MCH 28.4 pg (26.0-34.0); MCHC 32.4 g/dL (31.0-37.0); MCV 87.6 fL (80.0-100.0); MEAN PLATELET VOLUME 7.7 fL (7.4-10.4); RBC 3.25 10x6/uL (4.00-5.40); RDW 16.7 % (11.5-14.5)
[2020-11-18 04:39] LABS: WBC 9.2 10x3/uL (4.8-10.8)
[2020-11-18 04:50] LABS: ALKALINE PHOSPHATASE 83 U/L (30-120); ALT (SGPT) 16 U/L (10-68); BILIRUBIN - TOTAL 0.29 mg/dL (0.2-1.3); CALC OSMOLALITY 282 mosm/kg (275-300); CHLORIDE - SERUM 108 mmol/L (98-107); CREATININE - SERUM 0.7 mg/dL (0.6-1.3); GLUCOSE 121 mg/dL (74-106); POTASSIUM - SERUM 3.6 mmol/L (3.5-5.1); PROTEIN - SERUM 5.8 g/dL (6.4-8.2); SODIUM 142 mmol/L (136-145); UREA NITROGEN 11 mg/dL (7-18); eGFR NON AFRICAN AMERICAN 88 mL/min (90-120)
[2020-11-19] VITALS (21 sets, daily range): BP systolic 92–161; BP diastolic 37–58
[2020-11-19 05:33] LABS: HEMATOCRIT 29.5 % (36.0-48.0); HEMOGLOBIN 9.5 g/dL (12-16); MCH 28.1 pg (26.0-34.0); MCHC 32.1 g/dL (31.0-37.0); MCV 87.5 fL (80.0-100.0); MEAN PLATELET VOLUME 7.7 fL (7.4-10.4); RBC 3.37 10x6/uL (4.00-5.40); RDW 17.4 % (11.5-14.5); WBC 8.5 10x3/uL (4.8-10.8)
[2020-11-19 06:11] LABS: ALBUMIN 1.9 g/dL (3.4-5.0); ALKALINE PHOSPHATASE 74 U/L (30-120); ALT (SGPT) 16 U/L (10-68); BILIRUBIN - TOTAL 0.27 mg/dL (0.2-1.3); CALCIUM 8.4 mg/dL (8.5-10.1); CARBON DIOXIDE 27.4 mmol/L (21.0-32.0); CHLORIDE - SERUM 107 mmol/L (98-107); CREATININE - SERUM 0.7 mg/dL (0.6-1.3); GLUCOSE 93 mg/dL (74-106); POTASSIUM - SERUM 3.9 mmol/L (3.5-5.1); PROTEIN - SERUM 5.6 g/dL (6.4-8.2); SODIUM 143 mmol/L (136-145); eGFR NON AFRICAN AMERICAN 88 mL/min (90-120)
[2020-11-19 06:13] LABS: CALC OSMOLALITY 285 mosm/kg (275-300); UREA NITROGEN 14 mg/dL (7-18)
[2020-11-20] VITALS (21 sets, daily range): BP systolic 105–162; BP diastolic 37–61
--- NOTE | 2020-11-20 00:36 | NUR ---
PT ON BIPAP
[2020-11-20 05:21] LABS: HEMATOCRIT 27.3 % (36.0-48.0); MCH 28.7 pg (26.0-34.0); MCHC 32.9 g/dL (31.0-37.0); MCV 87.2 fL (80.0-100.0); MEAN PLATELET VOLUME 7.4 fL (7.4-10.4); RBC 3.13 10x6/uL (4.00-5.40); RDW 17.3 % (11.5-14.5); WBC 8.3 10x3/uL (4.8-10.8)
[2020-11-20 05:37] LABS: ALBUMIN 1.7 g/dL (3.4-5.0); ALKALINE PHOSPHATASE 70 U/L (30-120); ALT (SGPT) 15 U/L (10-68); CALC OSMOLALITY 281 mosm/kg (275-300); CALCIUM 8.2 mg/dL (8.5-10.1); CHLORIDE - SERUM 107 mmol/L (98-107); CREATININE - SERUM 0.7 mg/dL (0.6-1.3); GLUCOSE 100 mg/dL (74-106); PROTEIN - SERUM 5.2 g/dL (6.4-8.2); SODIUM 141 mmol/L (136-145); UREA NITROGEN 14 mg/dL (7-18); eGFR NON AFRICAN AMERICAN 88 mL/min (90-120)
--- NOTE | 2020-11-20 06:56 | NUR ---
PIV PLACE TO LEFT WRIST. RIGHT IJ D/C'D. PT UP AMBULATING YESTERDAY. STILES CATH D/C'D. STILES D/C'D AT 0615. DRESSINGS TO RIGHT BREAST AND SUBSTERNAL CHANGED, TPM WIRES ONLY NOTED AND OLD CHEST TUBE SITES.
--- NOTE | 2020-11-20 10:33 | NUR ---
Nutrition Reassessment/Follow-up: Extubated 11/16. Poor PO intake. Discussed with nursing; will send Glucerna with lunch today. Diet: Diabetic PO intake: 0-25% Wt: 136# (11/19); 130# (11/14) Labs noted: Glu 100, Ca 8.2, Alb 1.7 Meds noted: Humulin, Senokot, Colace, Protonix Est needs: 3754-3669 kcal/day (25-30 kcal/kg) 60-75 g protein/day (1-1.2 g/kg) 3541-8129 mL fluid/day (1 mL/kcal) Nutrition Dx: -Inadequate energy intake R/T appetite, recent surgery AEB poor PO intake reported. Nutrition Goals: -PO intake >=75% avg of meals/snacks. -Stable dry wt. -Glu at or near normal. Nutrition Intervention: -Encourage PO intake and honor food preferences within diet restrictions. -Will send Glucerna with lunch today for pt trial. -Monitor wt. -RD will follow up within 2-3 days.
--- NOTE | 2020-11-20 18:30 | NUR ---
UP IN CHAIR MOST OF DAY. TOLERATED WELL. AMBULATED TO BATHROOM, GAIT VERY UNSTEADY. POOR APPETITE. NEEDS ENCOURAGEMENT TO DO INCENTIVE SPIROMETRY. FAMILY HERE UPDATES GIVEN
[2020-11-21] VITALS (16 sets, daily range): BP systolic 98–139; BP diastolic 38–48
[2020-11-21 04:47] LABS: BASOPHILS 0.9 % (0-2); EOSINOPHILS 3.2 % (0-7); HEMATOCRIT 28.4 % (36.0-48.0); HEMOGLOBIN 9.4 g/dL (12-16); LYMPHOCYTES 8.5 % (15-50); MCH 28.4 pg (26.0-34.0); MEAN PLATELET VOLUME 7.6 fL (7.4-10.4); MONOCYTES 11.5 % (2-11); NEUTROPHILS 75.9 % (40-80); RDW 17.3 % (11.5-14.5); WBC 10.2 10x3/uL (4.8-10.8)
[2020-11-21 04:49] LABS: PLATELET COUNT 380 10x3/uL (130-400)
[2020-11-21 04:52] LABS: ALBUMIN 1.9 g/dL (3.4-5.0); ALKALINE PHOSPHATASE 78 U/L (30-120); ALT (SGPT) 16 U/L (10-68); BILIRUBIN - TOTAL 0.21 mg/dL (0.2-1.3); CALC OSMOLALITY 277 mosm/kg (275-300); CALCIUM 8.3 mg/dL (8.5-10.1); CARBON DIOXIDE 29.6 mmol/L (21.0-32.0); CHLORIDE - SERUM 104 mmol/L (98-107); CREATININE - SERUM 0.8 mg/dL (0.6-1.3); GLUCOSE 102 mg/dL (74-106); MAGNESIUM - SERUM 1.9 mg/dL (1.8-2.4); PHOSPHOROUS 3.3 mg/dL (2.5-4.9); POTASSIUM - SERUM 3.9 mmol/L (3.5-5.1); PROTEIN - SERUM 5.6 g/dL (6.4-8.2); SODIUM 139 mmol/L (136-145); UREA NITROGEN 13 mg/dL (7-18); eGFR NON AFRICAN AMERICAN 76 mL/min (90-120)
--- NOTE | 2020-11-21 06:53 | NUR ---
RIGHT BREAST AND SUBSTERNAL DRESSINGS CHANGED PER ORDERS. PT TOLERATED WELL
--- NOTE | 2020-11-21 11:56 | MORECARE ---
CASE MANAGEMENT DISCHARGE SUMMARY PATIENT: THEO FATIMA UNIT: [id number] ADM DATE: 11/13/20 AGE: 65 : 53 SEX: F [facility]OM[facility]BED: [facility] AUTHOR: MOHIT,DOC PHYSICIAN: REFERRING PHYSICIAN: RAS AVILA MD DATE OF SERVICE: 11/21/20 Case Management Discharge Planning Summary COMMENTS ENTERED DATE: 11/17/20 16:02 CT COMMENT TYPE: Discharge Planning REVIEWER: Miroslava Knight CM attempted to see patient, but she is asleep in her bedside chair. CM will attempt again at a later date. DCP REVIEW SUMMARY ANTICIPATED D/C DATE: EXPECTED LOS : CASE STATUS: DCP Initiated INITIAL REVIEW: 11/12/2020 INITIAL REVIEWER: Lucina Tesfaye FINAL DISCHARGE DISPOSITION: : FINAL REVIEWER: FINAL REVIEW DATE: DCP Focus Questions & Answers DCP Screen QUESTION: ANSWER High Risk Factors: : None Walking limitation: Patient stated self rated walking limitation present? : Yes Age: : 65 - 77 Prior living environment: : Lives Alone Disability ranking: : Grade 3: Moderate disability DCP Evaluation QUESTION: ANSWER Patient's ability to cope with chronic illness : d. No chronic illness Would patient like to participate in any Care Coordination programs (if applicable): : Not applicable Mental health screen: : No mental health history DCP Re-evaluation QUESTION: ANSWER Would patient like to participate in any Care Coordination programs (if applicable): : Not applicable PATIENT: THEO FATIMA ENCOUNTER: [id number] MEDICAL RECORD#: [id number] ADMISSION DATE: 11/13/2020 DISCHARGE DATE: ATTENDING MD: RAS LINARES : AGE: 65 MARITAL STATUS: W DC PLAN ID: [id number] FACILITY: [facility] PRINTED ON: 11/21/20 11:55 CT All edits/amendments must be made on the electronic document DICTATION DATE: 11/21/20 1155 LITIGATION MANAGER: JERRY 11/21/20 1155 RPT#: [id number] DC DATE: STATUS: ADM IN [facility] [address] [place] [address] END OF REPORT
--- NOTE | 2020-11-21 12:08 | MORECARE ---
CASE MANAGEMENT DISCHARGE SUMMARY PATIENT: THEO FATIMA UNIT: [id number] ADM DATE: 11/13/20 AGE: 65 : 53 SEX: F ROOM/BED: [facility] AUTHOR: MOHIT,DOC PHYSICIAN: REFERRING PHYSICIAN: RAS AVILA MD DATE OF SERVICE: 11/21/20 Case Management Discharge Planning Summary COMMENTS ENTERED DATE: 11/17/20 16:02 CT COMMENT TYPE: Discharge Planning REVIEWER: Miroslava Knight CM attempted to see patient, but she is asleep in her bedside chair. CM will attempt again at a later date. DCP REVIEW SUMMARY ANTICIPATED D/C DATE: EXPECTED LOS : CASE STATUS: DCP Initiated INITIAL REVIEW: 11/12/2020 INITIAL REVIEWER: Lucina Tesfaye FINAL DISCHARGE DISPOSITION: : FINAL REVIEWER: FINAL REVIEW DATE: DCP Focus Questions & Answers DCP Screen QUESTION: ANSWER High Risk Factors: : None Walking limitation: Patient stated self rated walking limitation present? : Yes Age: : 65 - 77 Prior living environment: : Lives Alone Disability ranking: : Grade 3: Moderate disability DCP Evaluation QUESTION: ANSWER Patient and/or caregiver agree upon recommended discharge plan? : Yes Patient's current cognitive status: : *Oriented to person, place, situation, time and present Patient's ability to cope with chronic illness : a. Adequate (0-3 ED visits in 6 mos., adequate financial resources, attends scheduled appts.) Patient gives permission to discuss discharge plans with: (name, relationship and number) : SisterNguyen-Lives in [place], [place] Family / Caregiver's ability to cope with chronic illness: : a. Adequate (ability to meet patient's medical needs, ensures patient attends medical appts.) Does the patient have the ability to pay for or attain post discharge needs / services? : Yes Functional screen assessment: : Basic needs can adequately be met by self Family / Caregiver's ability to cope with chronic illness: : a. Adequate (ability to meet patient's medical needs, ensures patient attends medical appts.) Physical Status: : Independent with ADL's Equipment needed for post hospitalization: : None Is there a likelihood that the patient will require additional services to return to the preadmission environment? : Yes Living Arrangements: : Home Alone with Support Results of this evaluation have been discussed with: : Patient Patient with capacity for self-care or can be cared for in same environment as prior to hospitalization? : No Baseline cognitive status: : *Oriented to person, place, situation, time and present Living arrangements comments: : Lives at home alone. Gets Meals on Wheels and Home Health from [facility]. Physical environment modification needed / anticipated for discharge: : No Preadmission facility can/cannot provide post hospital level of care needs: : Cannot - at lower level of care than preadmission Medication Management: : Patient states can afford medications Planned post hospital services available for patient? : Yes Pharmacy name(s): : [facility] Planned post hospital services covered by insurance plan? : Yes Does Patient have transportation to get home and to follow-up medical appointments when discharged from the hospital? : Yes Would patient like to participate in any Care Coordination programs (if applicable): : Not applicable Does the patient have electricity at home? : Yes Does the patient have running water in their house? : Yes Equipment in use: : Cane - Single Leg Equipment in use: : Glucometer Equipment in use: : Walker - Rollator Equipment in use: : Walker - Rolling Mental health screen: : No mental health history Psychosocial status: : Independent adult (65+) Abuse/Neglect: : None Resources / Services in place: : Home health Resources / Services in place: : Meals on Wheels Contact information for resources in use: : Meals on Wheels: [facility]: Problems identified by the patient regarding discharge: : HAS 14 STEPS TO ENTER APARTMENT AND LIVES ALONE DCP Re-evaluation QUESTION: ANSWER Would patient like to participate in any Care Coordination programs (if applicable): : Not applicable PATIENT: THEO FATIMA ENCOUNTER: [id number] MEDICAL RECORD#: [id number] ADMISSION DATE: 11/13/2020 DISCHARGE DATE: ATTENDING MD: RAS LINARES : AGE: 65 MARITAL STATUS: W DC PLAN ID: [id number] FACILITY: [facility] PRINTED ON: 11/21/20 12:07 CT All edits/amendments must be made on the electronic document DICTATION DATE: 11/21/201206 MATRIX BATH OPERATOR: JERRY 11/21/201206 RPT#: [id number] DC DATE: STATUS: ADM IN [facility] [address] [place] [address] END OF REPORT
--- NOTE | 2020-11-21 12:21 | MORECARE ---
CASE MANAGEMENT DISCHARGE SUMMARY PATIENT: THEO FATIMA UNIT: [id number] ADM DATE: 11/13/20 AGE: 65 : 53 SEX: F [facility] AUTHOR: MOHIT,DOC PHYSICIAN: REFERRING PHYSICIAN: RAS AVILA MD DATE OF SERVICE: 11/21/20 Case Management Discharge Planning Summary COMMENTS ENTERED DATE: 11/21/20 12:05 CT COMMENT TYPE: Discharge Planning REVIEWER: Lucina Tesfaye CM met with patient to discuss discharge planning / needs. CM discussed availability of home health, rehab services, and medical equipment. Patient states she plans to discharge to Rehab at [facility]. Signed LEELEE, copy on chart. States she lives alone in an apartment that is 14 stairs up from the ground floor. Patient looses her balance easily, gets tired quickly, and has not worked on stair training up to this point. Patient is concerned about trying to get up the 14 steps to get home. States her sister is available to transport her home upon discharge and to the pharmacy / doctor appointments until she is medically released to drive. States she gets Home Health from [facility] for dressing changes. States she gets Meals on Wheels. Denies need for any DME at this time. CM spoke with physical therapist about patient's 14 steps to her apartment, stair training, and Rehab Prescreen order. Therapy will initiate stair training today. CM called and spoke with Rama at [facility] about Rehab order and patient concerns about going home. Rama states they will start screen today. CM explained and served DC IMM to patient. Copy on chart. Awaiting determination from Rehab screen. ENTERED DATE: 11/17/20 16:02 CT COMMENT TYPE: Discharge Planning REVIEWER: Miroslava Knight CM attempted to see patient, but she is asleep in her bedside chair. CM will attempt again at a later date. DCP REVIEW SUMMARY ANTICIPATED D/C DATE: EXPECTED LOS : CASE STATUS: DCP Initiated INITIAL REVIEW: 11/12/2020 INITIAL REVIEWER: Lucina Tesfaye FINAL DISCHARGE DISPOSITION: : FINAL REVIEWER: FINAL REVIEW DATE: DCP Focus Questions & Answers DCP Screen QUESTION: ANSWER High Risk Factors: : None Walking limitation: Patient stated self rated walking limitation present? : Yes Age: : 65 - 77 Prior living environment: : Lives Alone Disability ranking: : Grade 3: Moderate disability DCP Evaluation QUESTION: ANSWER Patient and/or caregiver agree upon recommended discharge plan? : Yes Patient's current cognitive status: : *Oriented to person, place, situation, time and present Patient's ability to cope with chronic illness : a. Adequate (0-3 ED visits in 6 mos., adequate financial resources, attends scheduled appts.) Patient gives permission to discuss discharge plans with: (name, relationship and number) : SisterNguyen-Lives in [place], [place] Family / Caregiver's ability to cope with chronic illness: : a. Adequate (ability to meet patient's medical needs, ensures patient attends medical appts.) Does the patient have the ability to pay for or attain post discharge needs / services? : Yes Functional screen assessment: : Basic needs can adequately be met by self Family / Caregiver's ability to cope with chronic illness: : a. Adequate (ability to meet patient's medical needs, ensures patient attends medical appts.) Physical Status: : Independent with ADL's Equipment needed for post hospitalization: : None Is there a likelihood that the patient will require additional services to return to the preadmission environment? : Yes Living Arrangements: : Home Alone with Support Results of this evaluation have been discussed with: : Patient Patient with capacity for self-care or can be cared for in same environment as prior to hospitalization? : No Baseline cognitive status: : *Oriented to person, place, situation, time and present Living arrangements comments: : Lives at home alone. Gets Meals on Wheels and Home Health from [facility]. Physical environment modification needed / anticipated for discharge: : No Preadmission facility can/cannot provide post hospital level of care needs: : Cannot - at lower level of care than preadmission Medication Management: : Patient states can afford medications Planned post hospital services available for patient? : Yes Pharm[facility] name([facility] Planned post hospital services covered by insurance plan? : Yes Does Patient have transportation to get home and to follow-up medical appointments when discharged from the hospital? : Yes Would patient like to participate in any Care Coordination programs (if applicable): : Not applicable Does the patient have electricity at home? : Yes Does the patient have running water in their house? : Yes Equipment in use: : Cane - Single Leg Equipment in use: : Glucometer Equipment in use: : Walker - Rollator Equipment in use: : Walker - Rolling Mental health screen: : No mental health history Psychosocial status: : Independent adult (65+) Abuse/Neglect: : None Resources / Services in place: : Home health Resources / Services in place: : Meals on Wheels Contact information for resources in use: : Meals on Wheels: [facility]: Problems identified by the patient regarding discharge: : HAS 14 STEPS TO ENTER APARTMENT AND LIVES ALONE DCP Re-evaluation QUESTION: ANSWER Would patient like to participate in any Care Coordination programs (if applicable): : Not applicable PATIENT: THEO FATIMA ENCOUNTER: [id number] MEDICAL RECORD#: [id number] ADMISSION DATE: 11/13/2020 DISCHARGE DATE: ATTENDING MD: RAS LINARES : AGE: 65 MARITAL STATUS: W DC PLAN ID: [id number] FACILITY: [facility] PRINTED ON: 11/21/20 12:20 CT All edits/amendments must be made on the electronic document DICTATION DATE: 11/21/20 122 CONTACT CENTER ASSOCIATE: JERRY 11/21/20 1220 RPT#: [id number] DC DATE: STATUS: ADM IN [facility] [address] [place] [address] END OF REPORT
--- NOTE | 2020-11-21 13:34 | CN ---
PATIENT NAME:THEO FATIMA MEDICAL RECORD: [id number] : 51 LOCATION:[facility].CV04 ADMIT DATE: 11/13/20 ACCOUNT: [id number] CONSULTING PHYSICIAN: LÓPEZ ADEN MD REFERRING PHYSICIAN: RAS AVILA MD DATE OF CONSULTATION: 11/19/2020 SUBJECTIVE: The patient is sitting up in chair, no apparent distress. OBJECTIVE: VITAL SIGNS: Blood pressure 160s/50, pulse 80s (regular). HEENT: Neck supple. No appreciated JVD. CHEST: Postop bandaged. HEART: Regular rhythm and rate. LUNGS: Breath sounds clear bilaterally. ABDOMEN: Obese. EXTREMITIES: Negative for edema. TELEMETRY: Sinus rhythm. ASSESSMENT: Status post coronary artery bypass grafting. PLAN: Continue current medical management at this time. Follow recommendation as clinically indicated. TRANSINT:[id number] Voice Confirmation ID: [id number] DOCUMENT ID: [id number] LÓPEZ ADEN MD at 1334 CC: [id number] DICTATION DATE: 11/19/2016 LIME KILN AND RECAUSTICIZING OPERATOR: 11/19/20 1204 ADM IN [facility] [address] [place] [address]
--- NOTE | 2020-11-21 13:43 | NUR ---
DR. ARTEAGA HERE. PACE MAKER WIRES PULLED PATEINT TOLERATED WELL
[2020-11-21] MEDS ORDERED: TOPROL XL25 MG PO (17:13)
[2020-11-21] MEDS ORDERED: LISINOPRIL2.5 MG PO (17:13)
[2020-11-21] MEDS ORDERED: COLACE100 MG PO (17:15)
[2020-11-21] MEDS ORDERED: GLIMEPIRIDE2 MG PO (17:16)
[2020-11-21] MEDS ORDERED: PERCOCET 5-3251 TAB PO (17:16)
--- NOTE | 2020-11-21 18:32 | NUR ---
PATIENT IS ACCEPTED TO REHAB AND HAS BEEN ASSIGNED TO ROOM 1116A. NOTIFIED EMI, PATIENT'S NURSE AND YASMIN COHENNATURALIST-CARMEN VILA LPN, CLINICAL LIAISON
--- NOTE | 2020-11-21 18:39 | NUR ---
REPORT CALLED TO MATTHEW. PATIENT TO TRANSFER TO REHAB ROOM 1116. SISTER NOTIFIED BY PHONE
[2020-11-22] MEDS ORDERED: PERCOCET 5-3251 TAB PO (01:27)
--- NOTE | 2020-11-22 07:45 | MORECARE ---
CASE MANAGEMENT DISCHARGE SUMMARY PATIENT: THEO FATIMA UNIT: [id number] ADM DATE: 11/13/20 AGE: 65 : 51 SEX: F [facility] AUTHOR: MOHIT,DOC PHYSICIAN: REFERRING PHYSICIAN: RAS AVILA MD DATE OF SERVICE: 11/22/20 Case Management Discharge Planning Summary COMMENTS ENTERED DATE: 11/21/20 12:05 CT COMMENT TYPE: Discharge Planning REVIEWER: Lucina Tesfaye CM met with patient to discuss discharge planning / needs. CM discussed availability of home health, rehab services, and medical equipment. Patient states she plans to discharge to Rehab at [facility]. Signed LEELEE, copy on chart. States she lives alone in an apartment that is 14 stairs up from the ground floor. Patient looses her balance easily, gets tired quickly, and has not worked on stair training up to this point. Patient is concerned about trying to get up the 14 steps to get home. States her sister is available to transport her home upon discharge and to the pharmacy / doctor appointments until she is medically released to drive. States she gets Home Health from [facility] for dressing changes. States she gets Meals on Wheels. Denies need for any DME at this time. CM spoke with physical therapist about patient's 14 steps to her apartment, stair training, and Rehab Prescreen order. Therapy will initiate stair training today. CM called and spoke with Rama at [facility] about Rehab order and patient concerns about going home. Rama states they will start screen today. CM explained and served DC IMM to patient. Copy on chart. Awaiting determination from Rehab screen. ENTERED DATE: 11/17/20 16:02 CT COMMENT TYPE: Discharge Planning REVIEWER: Miroslava Knight CM attempted to see patient, but she is asleep in her bedside chair. CM will attempt again at a later date. DCP REVIEW SUMMARY ANTICIPATED D/C DATE: EXPECTED LOS : CASE STATUS: DCP Initiated INITIAL REVIEW: 11/12/2020 INITIAL REVIEWER: Lucina Tesfaye FINAL DISCHARGE DISPOSITION: : FINAL REVIEWER: FINAL REVIEW DATE: DCP Focus Questions & Answers DCP Screen QUESTION: ANSWER High Risk Factors: : None Walking limitation: Patient stated self rated walking limitation present? : Yes Age: : 65 - 77 Prior living environment: : Lives Alone Disability ranking: : Grade 3: Moderate disability DCP Evaluation QUESTION: ANSWER Patient and/or caregiver agree upon recommended discharge plan? : Yes Family / Caregiver's ability to cope with chronic illness: : a. Adequate (ability to meet patient's medical needs, ensures patient attends medical appts.) Patient's ability to cope with chronic illness : a. Adequate (0-3 ED visits in 6 mos., adequate financial resources, attends scheduled appts.) Patient's current cognitive status: : *Oriented to person, place, situation, time and present Patient gives permission to discuss discharge plans with: (name, relationship and number) : SisterNguyen-Lives in [place], [place] Does the patient have the ability to pay for or attain post discharge needs / services? : Yes Functional screen assessment: : Basic needs can adequately be met by self Physical Status: : Independent with ADL's Family / Caregiver's ability to cope with chronic illness: : a. Adequate (ability to meet patient's medical needs, ensures patient attends medical appts.) Equipment needed for post hospitalization: : None Is there a likelihood that the patient will require additional services to return to the preadmission environment? : Yes Living Arrangements: : Home Alone with Support Results of this evaluation have been discussed with: : Patient Patient with capacity for self-care or can be cared for in same environment as prior to hospitalization? : No Living arrangements comments: : Lives at home alone. Gets Meals on Wheels and Home Health from [facility]. Baseline cognitive status: : *Oriented to person, place, situation, time and present Physical environment modification needed / anticipated for discharge: : No Preadmission facility can/cannot provide post hospital level of care needs: : Cannot - at lower level of care than preadmission Medication Management: : Patient states can afford medications Planned post hospital services available for patient? : Yes [facility] Planned post hospital services covered by insurance plan? : Yes Does Patient have transportation to get home and to follow-up medical appointments when discharged from the hospital? : Yes Would patient like to participate in any Care Coordination programs (if applicable): : Not applicable Does the patient have electricity at home? : Yes Does the patient have running water in their house? : Yes Equipment in use: : Walker - Rolling Equipment in use: : Walker - Rollator Equipment in use: : Glucometer Equipment in use: : Cane - Single Leg Mental health screen: : No mental health history Psychosocial status: : Independent adult (65+) Abuse/Neglect: : None Resources / Services in place: : Meals on Wheels Resources / Services in place: : Home health Contact information for resources in use: : Meals on Wheels: [facility]: Problems identified by the patient regarding discharge: : HAS 14 STEPS TO ENTER APARTMENT AND LIVES ALONE DCP Re-evaluation QUESTION: ANSWER Would patient like to participate in any Care Coordination programs (if applicable): : Not applicable PATIENT: THEO FATIMA ENCOUNTER: [id number] MEDICAL RECORD#: [id number] ADMISSION DATE: 11/13/2020 DISCHARGE DATE: 11/21/2020 ATTENDING MD: RAS LINARES : AGE: 65 MARITAL STATUS: W DC PLAN ID: [id number] FACILITY: [facility] PRINTED ON: 11/22/20 7:45 CT All edits/amendments must be made on the electronic document DICTATION DATE: 11/22/20744 RETAIL PROJECT MERCHANDISER: JERRY 11/22/20744 RPT#: [id number] DC DATE:11/21/20 STATUS: DIS IN [facility] [address] [place] [address] END OF REPORT
--- NOTE | 2020-11-22 11:20 | MORECARE ---
CASE MANAGEMENT DISCHARGE SUMMARY PATIENT: THEO FATIMA UNIT: [id number] ADM DATE: 11/13/20 AGE: 65 : 51 SEX: F ROOM/BED: [facility] AUTHOR: MOHIT,DOC PHYSICIAN: REFERRING PHYSICIAN: RAS AVILA MD DATE OF SERVICE: 11/22/20 Case Management Discharge Planning Summary COMMENTS ENTERED DATE: 11/21/20 12:05 CT COMMENT TYPE: Discharge Planning REVIEWER: Lucina Tesfaye CM met with patient to discuss discharge planning / needs. CM discussed availability of home health, rehab services, and medical equipment. Patient states she plans to discharge to Rehab at [facility]. Signed LEELEE, copy on chart. States she lives alone in an apartment that is 14 stairs up from the ground floor. Patient looses her balance easily, gets tired quickly, and has not worked on stair training up to this point. Patient is concerned about trying to get up the 14 steps to get home. States her sister is available to transport her home upon discharge and to the pharmacy / doctor appointments until she is medically released to drive. States she gets Home Health from [facility] for dressing changes. States she gets Meals on Wheels. Denies need for any DME at this time. CM spoke with physical therapist about patient's 14 steps to her apartment, stair training, and Rehab Prescreen order. Therapy will initiate stair training today. CM called and spoke with Rama at [facility] about Rehab order and patient concerns about going home. Rama states they will start screen today. CM explained and served DC IMM to patient. Copy on chart. Awaiting determination from Rehab screen. ENTERED DATE: 11/17/20 16:02 CT COMMENT TYPE: Discharge Planning REVIEWER: Miroslava Knight CM attempted to see patient, but she is asleep in her bedside chair. CM will attempt again at a later date. DCP REVIEW SUMMARY ANTICIPATED D/C DATE: EXPECTED LOS : CASE STATUS: DCP Initiated INITIAL REVIEW: 11/12/2020 INITIAL REVIEWER: Lucina Tesfaye FINAL DISCHARGE DISPOSITION: : FINAL REVIEWER: FINAL REVIEW DATE: DCP Focus Questions & Answers DCP Screen QUESTION: ANSWER High Risk Factors: : None Walking limitation: Patient stated self rated walking limitation present? : Yes Age: : 65 - 77 Prior living environment: : Lives Alone Disability ranking: : Grade 3: Moderate disability DCP Evaluation QUESTION: ANSWER Patient and/or caregiver agree upon recommended discharge plan? : Yes Family / Caregiver's ability to cope with chronic illness: : a. Adequate (ability to meet patient's medical needs, ensures patient attends medical appts.) Patient's ability to cope with chronic illness : a. Adequate (0-3 ED visits in 6 mos., adequate financial resources, attends scheduled appts.) Patient's current cognitive status: : *Oriented to person, place, situation, time and present Patient gives permission to discuss discharge plans with: (name, relationship and number) : SisterNguyen-Lives in [place], [place] Does the patient have the ability to pay for or attain post discharge needs / services? : Yes Functional screen assessment: : Basic needs can adequately be met by self Family / Caregiver's ability to cope with chronic illness: : a. Adequate (ability to meet patient's medical needs, ensures patient attends medical appts.) Physical Status: : Independent with ADL's Equipment needed for post hospitalization: : None Is there a likelihood that the patient will require additional services to return to the preadmission environment? : Yes Living Arrangements: : Home Alone with Support Results of this evaluation have been discussed with: : Patient Patient with capacity for self-care or can be cared for in same environment as prior to hospitalization? : No Living arrangements comments: : Lives at home alone. Gets Meals on Wheels and Home Health from [facility]. Baseline cognitive status: : *Oriented to person, place, situation, time and present Physical environment modification needed / anticipated for discharge: : No Preadmission facility can/cannot provide post hospital level of care needs: : Cannot - at lower level of care than preadmission Medication Management: : Patient states can afford medications Planned post hospital services available for patient? : Yes [facility] Planned post hospital services covered by insurance plan? : Yes Does Patient have transportation to get home and to follow-up medical appointments when discharged from the hospital? : Yes Would patient like to participate in any Care Coordination programs (if applicable): : Not applicable Does the patient have electricity at home? : Yes Does the patient have running water in their house? : Yes Equipment in use: : Walker - Rolling Equipment in use: : Walker - Rollator Equipment in use: : Glucometer Equipment in use: : Cane - Single Leg Mental health screen: : No mental health history Psychosocial status: : Independent adult (65+) Abuse/Neglect: : None Resources / Services in place: : Meals on Wheels Resources / Services in place: : Home health Contact information for resources in use: : Meals on Wheels: [facility]: Problems identified by the patient regarding discharge: : HAS 14 STEPS TO ENTER APARTMENT AND LIVES ALONE DCP Re-evaluation QUESTION: ANSWER Would patient like to participate in any Care Coordination programs (if applicable): : Not applicable PATIENT: THEO FATIMA ENCOUNTER: [id number] MEDICAL RECORD#: [id number] ADMISSION DATE: 11/13/2020 DISCHARGE DATE: 11/21/2020 ATTENDING MD: RAS LINARES : AGE: 65 MARITAL STATUS: W DC PLAN ID: [id number] FACILITY: [facility] PRINTED ON: 11/22/20 11:20 CT All edits/amendments must be made on the electronic document DICTATION DATE: 11/22/201119 CUT OFF SAW OPERATOR: JERRY 11/22/201119 RPT#: [id number] DC DATE:11/21/20 STATUS: DIS IN [facility] [address] [place] [address] END OF REPORT
== END 2020-11-21 18:50 | DRG 234 ==
LOC: D.ER 11:36 → D.EDHOLD 14:05 → D.CLR 14:05 → OBSVTIME 14:07 → D.EDHOLD 22:03 → D.M2 11-13 06:06 → D.CLR 11-13 10:28 → D.CVICU 11-13 15:36
PROVIDERS: Family Medicine; Internal Medicine Cardiovascular Disease; Thoracic Surgery (Cardiothoracic Vascular Surgery); ADMIT Family Medicine; ATTEND Family Medicine
PROC: B2111ZZ Fluoroscopy of Multiple Coronary Arteries using Low Osmolar Contrast (ICD-10-PCS; 2020-11-13)
PROC: 5A02210 Assistance with Cardiac Output using Balloon Pump, Continuous (ICD-10-PCS; 2020-11-13)
PROC: B2151ZZ Fluoroscopy of Left Heart using Low Osmolar Contrast (ICD-10-PCS; 2020-11-13)
PROC: 4A023N7 Measurement of Cardiac Sampling and Pressure, Left Heart, Percutaneous Approach (ICD-10-PCS; 2020-11-13)
PROC: 021209W Bypass Coronary Artery, Three Arteries from Aorta with Autologous Venous Tissue, Open Approach (ICD-10-PCS; 2020-11-14)
PROC: 06BP4ZZ Excision of Right Saphenous Vein, Percutaneous Endoscopic Approach (ICD-10-PCS; 2020-11-14)
PROC: 0210099 Bypass Coronary Artery, One Artery from Left Internal Mammary with Autologous Venous Tissue, Open Approach (ICD-10-PCS; principal; 2020-11-14 07:30)
PROC: 04CK0ZZ Extirpation of Matter from Right Femoral Artery, Open Approach (ICD-10-PCS; 2020-11-15)
DX: I21.9 Acute myocardial infarction, unspecified (principal); J98.11 Atelectasis; G40.909 Epilepsy, unspecified, not intractable, without status epilepticus; I25.110 Atherosclerotic heart disease of native coronary artery with unstable angina pectoris; Z85.3 Personal history of malignant neoplasm of breast; I10 Essential (primary) hypertension; E78.5 Hyperlipidemia, unspecified; J44.9 Chronic obstructive pulmonary disease, unspecified; K21.9 Gastro-esophageal reflux disease without esophagitis; M19.90 Unspecified osteoarthritis, unspecified site; Z79.84 Long term (current) use of oral hypoglycemic drugs; R06.89 Other abnormalities of breathing; E11.40 Type 2 diabetes mellitus with diabetic neuropathy, unspecified; D64.9 Anemia, unspecified